=== PATIENT | female | born 1960 | race Caucasian/White ===

== ENCOUNTER 2019-02-05 21:29 | Inpatient (IN) | payer BC, SELFPAY ==
[2019-02-05 21:30] VITALS: BP 165/101; PULSE 73; RESP 18; TEMP 36.7; O2SAT 97; BMI 28.2
--- NOTE | 2019-02-05 21:38 | RAD_ITS ---
STUDY: X-RAY CHEST REASON FOR EXAM: Female, 59 years old. Chest pain TECHNIQUE: Frontal and lateral views COMPARISON: None. FINDINGS: The lungs are clear and expanded. There is no demonstrated pleural abnormality. Normal size heart. Normal mediastinum and ligia. Normal visualized pulmonary arteries. Normal visualized aortic arch and descending thoracic aorta. Normal visualized thoracic spine. Normal visualized ribs, clavicles, and shoulders. There is no demonstrated abnormality of the visualized soft tissue structures of the upper abdomen. RAD/Chest PA and Lateral IMPRESSION: Normal x-ray examination of the chest. Electronically Signed: Juan Sesay DO at 21:54 EDT Tel [phone], Service support ,
--- NOTE | 2019-02-05 21:40 | EKG12_ITS ---
Test Reason : CP Blood Pressure : / mmHG Vent. Rate : 074 BPM Atrial Rate : 074 BPM P-R Int : 202 ms QRS Dur : 092 ms QT Int : 398 ms P-R-T Axes : 074 030 092 degrees QTc Int : 441 ms Normal sinus rhythm Abnormal QRS-T angle, consider primary T wave abnormality Abnormal ECG Confirmed by CARLOS AMADOR ([id number]), editor magazine ALISSON HUFF ([id number]) on 02/11/2019 1:01:39 PM Referred By: Carlos Amador Confirmed By:CARLOS AMADOR
[2019-02-05 22:03] LABS: Absolute Neutrophil Count 3.4 X10^3/uL (2.0-7.7); Basophil# 0.01 X10^3/uL; Basophil% 0.2 % (0-1); Eosinophil# 0.17 X10^3/uL; Hematocrit 43.2 % (40-54); Hemoglobin 14.7 g/dl (13.0-16.5); Lymphocyte % 24.7 % (19-41); Mean Corpuscular Hgb 28.9 pg (27.0-32.0); Mean Platelet Vol. 9.4 fl (6.2-12.0); Monocyte# 0.63 X10^3/uL; Monocyte% 11.1 % (0-10); Neutrophil # 3.44 X10^3/uL (2.7-7.7); Neutrophil % 60.8 % (47-70); POSITIVE COUNT NO; POSITIVE DIFFERENTIAL NO; POSITIVE MORPHOLOGY NO; Platelet Count 215 K/mm3 (150-450); RBC Distribution Width CV 12.8 % (11.6-14.6); RBC Distribution Width SD 39.7 fl (35.1-43.9); Red Blood Count 5.08 M/mm3 (4.6-6.2); White Blood Count 5.7 K/mm3 (4.4-11.0)
[2019-02-05 22:10] VITALS: BP 135/81; PULSE 70; RESP 16; O2SAT 97
[2019-02-05 22:28] LABS: Anion Gap 6 (5-15); BUN 20 mg/dL (7-18); BUN/Creat Ratio 22.4 RATIO (10-20); Calcium,Total 9.7 mg/dL (8.5-10.1); Chloride 104 mmol/L (98-107); Creatinine, Serum 0.89 mg/dL (0.70-1.30); EST Glomerular Filtration Rate 92 mL/min (>60); Est Glom Filt Rate - Afr Amer 111 mL/min (>60); Estimated Creatinine Clearance 78.65 ml/min; Glucose 92 mg/dL (74-106); Potassium 3.7 mmol/L (3.5-5.1); Sodium Level 141 mmol/L (136-145)
[2019-02-05 23:23] VITALS: BP 161/98; PULSE 69; O2SAT 97
--- NOTE | 2019-02-05 23:43 | EKG12_ITS ---
Test Reason : REPEAT Blood Pressure : / mmHG Vent. Rate : 072 BPM Atrial Rate : 072 BPM P-R Int : 224 ms QRS Dur : 096 ms QT Int : 412 ms P-R-T Axes : 071 051 105 degrees QTc Int : 451 ms Sinus rhythm with 1st degree A-V block ST elevation consider inferior injury or acute infarct ACUTE FL / STEMI Consider right ventricular involvement in acute inferior infarct Abnormal ECG Confirmed by CARLOS AMADOR ([id number]), offline editor ALISSON HUFF ([id number]) on 02/11/2019 1:01:19 PM Referred By: Carlos Amador Confirmed By:CARLOS AMADOR
[2019-02-05] MEDS: Aspirin 81 MG TAB.CHEW 324 MG PO (23:56)
[2019-02-05 23:58] VITALS: BP 168/121; PULSE 83; RESP 14; O2SAT 99
[2019-02-06] VITALS (43 sets, daily range): BP systolic 82–168; BP diastolic 45–121; PULSE 63–87; RESP 10–22; TEMP 36.5–37.1; O2SAT 95–100; BMI 28.3; BMI 28.0
--- NOTE | 2019-02-06 00:07 | ED.VISSUMM ---
- ER Visit Summary Date of Service: 02/06/19 Chief Complaint: Chest pain History of Present Illness: The patient is a 59 M who presents with chest pain that began earlier today. Patient states her pain was intermittent and lasted approximately 5 minutes. Patient describes the pain as a pressure over the left side of her chest. Patient states the pain radiated to her left arm and jaw and then would resolve. Patient states the pain has been coming and going for the past few hours. Patient states nothing makes it better or worse. Patient admits to some nausea and some diaphoresis. Patient denies any of breath. Patient denies any palpitations. Patient denies any cough or fevers. Patient does have a history of hypertension and a family history of coronary artery disease with her father having myocardial infarctions at a young age. Physical Examination: Vital signs are stable with the exception of a mildly elevated blood pressure 165/101. Patient is in no acute distress. Patient is afebrile. Oral mucosa is pink and moist. Neck is supple. Trachea is midline. There is no JVD noted. Heart was regular rate and rhythm. Lungs are clear and equal bilaterally. Abdomen is soft. Bowel sounds are normal. There is no tenderness. Cranial nerves II through XII are intact. There are no focal motor or sensory deficits noted. Extremities are intact. There is no calf tenderness. Test Results: EKG showed normal sinus rhythm with a rate of 74. There is some mild T wave inversion in aVL but there are no other acute ST or T wave changes. CBC and basic metabolic profile were obtained and were normal. Troponin was normal. PA and lateral chest x-ray was normal. Emergency Department Course and Treatment: Patient was given aspirin. Patient had another episode of chest pain here in the emergency department. Repeat EKG was obtained at that time. EKG showed ST elevation in leads II, III, and aVF of 1 mm. There is more pronounced T wave inversion in aVL. There is also T wave inversion in lead I and V2 which is new compared to previous EKG. Patient met criteria for STEMI alert. Case was discussed with Dr. Amador. He recommended giving the patient Brilinta and heparin. He will begin to take the patient to the [facility]. Patient will be admitted to ICU to the hospitalist. Disposition: Admit to hospital Impression: 1. Acute STEMI This note was generated with YouMailation software. It may contain incorrect words, spelling, and punctuation that were not noted in review of the chart prior to signing ED Disposition - Plan for ED Patient: Disposition: Acute Care Hospital [facility] Diagnosis: STEMI (ST elevation myocardial infarction) Referrals: Care Physician,No Primary [Primary Care Provider] -
[2019-02-06] MEDS: Heparin Injection (Vial) 5,000 UNIT/ML VIAL 4000 UNIT IV (00:09)
[2019-02-06] MEDS: TICAGRELOR 90 MG TABLET 180 MG PO (00:09)
[2019-02-06] MEDS: LORazepam 2 MG/ML Syringe 0.5 MG IV (00:12)
--- NOTE | 2019-02-06 00:17 | PCM.HP.STD ---
Problem List (1) STEMI (ST elevation myocardial infarction) Status: Acute History of Present Illness Date of Admission: 02/06/19 Chief Complaint: CHEST PAIN The patient is a 59 year old F with a significant history of hypertension and fibromyalgia who presented to the emergency department because of chest pain that started about 5 hours prior of presentation. Associated her her symptoms is nausea without vomiting as well as diaphoresis. He describes her pain as not sharp but very painful. The pain was located on her left chest and it radiated to her left arm and to her neck. The pain was progressively worsening. While the patient was at the ED, a repeat EKG showed ST elevation in leads II, III and aVf. Her troponin was negative Past Medical History Medical History: Medical History (Last Updated 02/06/19 @ 02:35 by Carroll Garduno MD) HTN (hypertension) I10 Allergies No Known Allergies Allergy (Verified 02/05/19 21:32) Home Medications: Ambulatory Orders Medication Instructions Recorded Aliskiren Hemifumarate [Tekturna] 150 mg PO DAILY 02/05/19 Amlodipine [Norvasc] 10 mg PO DAILY 02/05/19 Aspirin [Aspirin, Baby] 81 mg PO DAILY@0800 02/05/19 Atenolol [Tenormin] 50 mg PO BID 02/05/19 Calcium Citrate 630 mg PO BID 02/05/19 Cholecalciferol (Vitamin D3) 2,000 unit PO DAILY 02/05/19 [Vitamin D3] Chondroitin Sulfate A Sodium 1,250 gm PO DAILY 02/05/19 [Chondroitin Sulfate] Clonidine HCl [Catapres] 0.1 mg PO BID 02/05/19 Cyanocobalamin (Vitamin B-12) 2,500 mcg PO DAILY 02/05/19 [B-12] Folic Acid 0.4 mg PO DAILY@0800 02/05/19 Glucosamine HCl 1,500 mg PO DAILY 02/05/19 Magnesium Oxide 500 mg PO DAILY 02/05/19 Olmesartan/Hydrochlorothiazide 1 tab PO DAILY 02/05/19 [Benicar Hct 40-12.5 MG Tab] buPROPion XL [Wellbutrin Xl] 300 mg PO DAILY 02/05/19 cycloBENZAPRine HCl [Flexeril] 10 mg PO QHS 02/05/19 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 In all he had about 16 at attacks. He had a CABG. Maternal History Items: Heart Disease - His mother had a CABG when she was in her 80s. Review of Systems Constitutional: Denies: Chills, Fever, Weight Change HEENT: Denies: Head Aches, Sinus Congestion, Sinus Drainage Cardiovascular: Reports: Chest Pressure. Denies: Palpitations Respiratory: Denies: Cough, Shortness of breath at rest, Sputum production Gastrointestinal: Denies: Abdominal Pain, Nausea, Vomiting Genitourinary: Denies: Dysuria Musculoskeletal: Denies: Joint Pain, Joint Tenderness Skin: Denies: Rash, Wounds Neurological: Denies: Numbness, Tingling, Focal weakness Psychiatric: Denies: Homicidal Ideations, Suicidal Ideations Hematologic/ Lymphatic: Denies: Easy Bruising, Easy Bleeding VTE Information - Inpt Only VTE Present on Admission: No VTE Mechan Device Prophylaxis: None VTE Pharm Prophylaxis ordered?: No Reason prophylaxis not ordered:: Treatment Not Indicated - Received therapeutic dose of heparin for STEMI Patient Problems: Active and Suspected Problems STEMI (ST elevation myocardial infarction) (Acute) - Physical Exam General: Alert, Oriented x3, Cooperative HEENT: Atraumatic, PERRLA, EOMI, Normocephalic Neck: Supple, No JVD, Negative Carotid Bruits Lungs: Clear to auscultation, Normal air movement Cardiovascular: Regular rate, No murmurs Abdomen: Bowel Sounds Present, Soft, Non Tender Extremities: No edema, Capillary Refill Less than 3 Seconds Skin: No rashes, No breakdown Musculoskeletal: No Tenderness to Palpation of Joints or Extremities Neurological: Cranial nerves II-XII grossly intact Psych/Mental Status: Anxious Vital Signs Temp Pulse Resp BP Pulse Ox 98.2 F 82 16 168/121 H 97 02/06/19 00:10 02/06/19 00:10 02/06/19 00:10 02/06/19 00:10 02/06/19 00:10 Oxygen Flow Rate (L/min) 2 Oxygen Delivery Method Nasal Cannula Weight: 79.379 kg Body Mass Index (BMI) 28.2 Laboratory Tests Past 24 Hrs 02/05/19 02/05/19 02/05/19 21:50 21:50 23:57 WBC 5.7 RBC 5.08 Hgb 14.7 Hct 43.2 MCV 85.0 MCH 28.9 MCHC 34.0 RDW 12.8 RDW Differential 39.7 Plt Count 215 MPV 9.4 Immature Gran % (Auto) 0.200 Neut % (Auto) 60.8 Lymph % (Auto) 24.7 [place] % (Auto) 11.1 H Eos % (Auto) 3.0 Baso % (Auto) 0.2 Absolute Neuts (auto) 3.4 Absolute Lymphs (auto) 1.40 Total Counted Not Reportable Sodium 141 Potassium 3.7 Chloride 104 Carbon Dioxide 31.0 Anion Gap 6 BUN 20 H Creatinine 0.89 Estim Creat Clear Calc 78.65 Est GFR (MDRD) Af Amer 111 Est GFR (MDRD) Non-Af 92 BUN/Creatinine Ratio 22.4 H Glucose 92 Calcium 9.7 Troponin I < 0.015 Pending Assessment/Plan All Active Problems STEMI (ST elevation myocardial infarction) (Acute) The patient is a 59 year old F with a significant history of hypertension and fibromyalgia who presented to the emergency department because of chest pain and developed STEMI while at the ED. STEMI EKG showed ST elevation in leads II, III and aVF with reciprocal T wave inversion in leads I, aVL and V2. STEMI alert was called and patient was sent to the STEMI lab. CXR independently reviewed confirms no acute cardiopulmonary process. Patient received ASA 324 mg. Patient received loading dose of Brilinta and therapeutic dose of heparin at the emergency department. Reports intolerance to Statin We will check lipid panel. HTN On multiple blood pressure medicine Fibromyalgia On Flexeril Osteoarthritis On Glucosamine and Chondroitin. Hold while inpatient. DVT Prophylaxis Received therapeutic dose of Heparin for STEMI Code Visit Inpatient E&M: 11151 Init Hosp L3
[2019-02-06 00:36] LABS: Prothrombin Time (Protime)PT. 13.1 SECONDS (11.7-14.9)
[2019-02-06 00:37] LABS: Partial Thromboplast Time 35.9 Seconds (24.1-36.2)
--- NOTE | 2019-02-06 01:30 | CL.I_ITS ---
Patient Name: RACHAEL GARCIA Study Date: 02/06/2019 Performing: Enzo Amador MD Ht: 66 inches 168 cm : 1960 Wt: 174.4 lbs 79 kg Age: 59 Gender: female BSA: 1.89 PROCEDURE(S) PERFORMED NE06-NMR/COR/LV RF35-QCY, HUGH AND/OR PTCA, ARTERY OR GRAFT, SINGLE VESSEL CLINICAL PROFILE AND CO-MORBIDITIES Patient presents with STEMI for emergent cardiac cath. Indications: ACS <= 24 hrs, Suspected CAD Heart Failure: None Stress/Imaging Stress/Image Study Performed: No Angina Classification Anginal Classification w/in 2 Weeks: CCS IV CAD Presentations: STEMI. Symptom onset Date/Time: 02/05/2019 Time Not Available Comorbidities/Risk Factors: Hypertension CONCLUSIONS Single vessel CAD of the RCA Non obstructive coronary arteries Successful PTCA/HUGH mid RCA with a 3.0 x 38 Promus Synergy, 95%-->0%, no dissection. RECOMMENDATIONS Referred for immediate PCI Highly recommend quitting all tobacco products Follow up with primary pharmaceutical compounding supervisor Risk factor modification ASA Indefinitley Plavix for at least 12 months Routine post interventional care Refer for Outpatient Cardiac Rehab Manual sheath removal per protocol Follow up with Dr. Amador Medical management of LAD and LCX. Manual sheath removal; 6Fr sheath sized up to 7Fr d/t small hematoma. DESCRIPTION OF PROCEDURE The patient arrived to the procedure lab. The risks and benefits of the procedure as well as a full d escription of our services here and lack of surgical backup were fully explained to the patient and/o r their significant other prior to the catheterization. The Timeout was completed, verifying the zohra ect patient and procedure. The patient's procedural site was prepped and draped in the usual fashion. Local anesthetic was given subcutaneously to right groin region with Lidocaine 2%. Using a modified Seldinger technique, arterial access was obtained via the right femoral artery, a 6Fr sheath was inse rted.. Left Coronary Artery selective angiography was performed in multiple views using a 4 Fr. JL5 catheter. Right Coronary Artery selective angiography was then performed in multiple views using a 6 Fr. HS1. Left Ventriculography was performed in DUNCAN projection using a 4 Fr. Pigtail catheter. LV to AO pullback pressures were then recorded HS1 Guide catheter was inserted and engaged into the RCA. Runthrough Guide catheter was inserted and engaged into the RCA. Emerge 2.0 x 12 Balloon catheter was inserted. Balloon catheter was advance d across lesion in the right coronary, mid. PTCA balloon inflated at 8 atms for 10 secs. Angiogram pe rformed post balloon dilatation. PTCA balloon inflated at 8 atms for 13 secs. PTCA balloon inflated a t 8 atms for 10 secs. Angiogram performed post balloon dilatation. Synergy 3.0 x 38 Drug Eluting sten t was advanced across the lesion in the right coronary, mid. Angiogram performed post stent deploymen t. Angiogram performed post stent deployment. The arterial sheath was exchanged to 7fr sheath upsiz e due to bleeding around the insertion site. The arterial sheath was sutured in place and capped CORONARY ANGIOGRAPHY DOMINANCE: Right Dominant LEFT HEART ASSESSMENT Left Ventricular Ejection Fraction: by LV Gram 65 % Normal Left Ventricular systolic function LVEDP: 19 mmHg Elevated Left Ventricular End Diastolic Pressure Normal LV wall motion LEFT MAIN: Angiographically normal LEFT ANTERIOR DESCENDING ARTERY: Mild luminal irregularities less than 30% CIRCUMFLEX ARTERY: Mild luminal irregularities less than 30% RIGHT CORONARY ARTERY: MID RCA: 95 % Stenosis INTERVENTION INFORMATION LESION SITE: RCA (Mid) Lesion Complexity: High/C, lesion at bifurcation: No, thrombus present: No, lesion length: 38 mm, cul prit lesion: Yes Pre Stenosis: 95 % Pre intervention MATT flow: 2 PROCEDURE: Drug Eluting Stent with pre dilatation. Post Stenosis: 0 % Post intervention MATT flow: 3 Lesion Devices: Embly 6 Fr HS1 100cm Guide Catheter Manuel Sci EMERGE MR 2.00x12 BALLOON Manuel Sci Synergy MR HUGH 3.00x38 COMPLICATIONS No Complications PROCEDURE MEDICATIONS Oxygen: 2 L/min via nasal cannula Brilinta , and 4 baby aspirin in the ER ^FreeText^ @ 02/06/2019 00:37:39 Heparin , 180mg Brilinta, and 4 baby aspirin in the ER ^FreeText^ 02/06/2019 00:37:39 Heparin 6000 unit(s) IV 02/06/2019 00:58:54 Nitro 200 mcg IC 02/06/2019 00:59:56 Nitro 200 mcg IC 02/06/2019 00:59:56 IV Bolus: .9 NaCl 700ml total 02/06/2019 00:40:30 SUMMARY OF HEMODYNAMIC DATA Time AIR REST ECG 00:35:17 AO 140/104 (122) SA 00:54:49 LV 150/-13, 16 01:10:52 LV 150/-13, 16 01:10:58 LVp 148/-14, 14 01:11:04 AOp 152/84 (114) 01:11:09 Signed By Enzo Amador MD On 02/06/2019 01:29:37 Enzo Amador MD
--- NOTE | 2019-02-06 01:41 | EKG12_ITS ---
Test Reason : AM EKG Blood Pressure : / mmHG Vent. Rate : 067 BPM Atrial Rate : 067 BPM P-R Int : 214 ms QRS Dur : 098 ms QT Int : 450 ms P-R-T Axes : 053 019 -04 degrees QTc Int : 475 ms Sinus rhythm with 1st degree A-V block Nonspecific T-Wave Abnormality Confirmed by CARRIE CASTILLO, ANDIE ([id number]), editor news ALISSON HUFF ([id number]) on 02/11/2019 1:56:49 PM Referred By: Enzo Amador Confirmed By:ANDIE BUTLER MD
[2019-02-06 03:16] LABS: Hematocrit 41.6 % (37-47); Hemoglobin 14.2 g/dl (12.0-15.0); Mean Corp Hgb Conc 34.1 g/gl (32-36); Mean Corpuscular Hgb 28.4 pg (27.0-32.0); Mean Corpuscular Volume 83.2 fL (81-99); Mean Platelet Vol. 9.2 fl (6.2-12.0); Platelet Count 236 K/mm3 (150-450); RBC Distribution Width SD 38.8 fl (35.1-43.9); White Blood Count 7.5 K/mm3 (4.4-11.0)
[2019-02-06 03:16] LABS: ACT Activated Clotting Time 197 sec (74-137)
[2019-02-06 03:20] LABS: Scan Indicated on CBC? Y/N NO
[2019-02-06 03:31] LABS: ACT Activated Clotting Time 285 sec (74-137)
[2019-02-06 03:31] LABS: ACT Activated Clotting Time 175 sec (74-137)
[2019-02-06 03:35] LABS: Anion Gap 10 (5-15); BUN 16 mg/dL (7-18); BUN/Creat Ratio 28.9 RATIO (10-20); Calcium,Total 8.6 mg/dL (8.5-10.1); Chloride 107 mmol/L (98-107); Cholesterol 183 mg/dL (200); Creatinine, Serum 0.55 mg/dL (0.55-1.02); EST Glomerular Filtration Rate 118 mL/min (>60); Est Glom Filt Rate - Afr Amer 143 mL/min (>60); Estimated Creatinine Clearance 100.56 ml/min; Glucose 119 mg/dL (74-106); High Density Lipoprotein 52 mg/dL; Potassium 3.2 mmol/L (3.5-5.1); Sodium Level 143 mmol/L (136-145); Triglycerides 92 mg/dL; Very Low Density Lipoprotein 18 mg/dL (5-40)
[2019-02-06] MEDS: Acetaminophen 325 MG Tablet 650 MG PO ×2 (03:52→13:51)
[2019-02-06] MEDS: 0.9% Normal Saline 1,000 ML 150 ML IV (03:53)
[2019-02-06] MEDS: diazePAM 5 MG Tablet PO (05:58)
--- NOTE | 2019-02-06 06:56 | ECHOCS_ITS ---
Procedure This was a 2D Doppler, Color Flow transthoracic echocardiogram. The study was technically difficult. Due to body habitus and unable to reposition patient due to recent heart catherization. Contrast injection was performed. Exam performed portable in ICU/CCU. Left Ventricle Normal size and thickness. The estimated ejection fraction is 55 %. Stage 1 diastolic dysfunction. Infero-Basal: Mildly hypokinetic. Right Ventricle Normal size and thickness. Normal systolic function. Atria Normal left atrium. Normal right atrium. Normal atrial septum. Mitral Valve The mitral valve is structurally normal. No prolapse or stenosis seen. Mild mitral annular calcification extending into the posterior leaflet. Tricuspid Valve Normal tricuspid valve. Trivial tricuspid valve insufficiency. Right ventricular systolic pressure estimated to be 23 mmHg. Aortic Valve Normal aortic valve. Trisinus/trileaflet aortic valve. Pulmonic Valve Normal pulmonic valve. Great Vessels Normal aortic root. Normal arch. Normal inferior vena cava. Inferior vena cava collapse with sniff. Pericardium/Pleural No pericardial effusion. Medication Diluted definity 2.0ml given slow IV push to enhance endocardial definition. MMode/2D Measurements & Calculations LVIDd: 4.4 cm IVSd: 1.2 cm Ao root diam: 3.3 cm LVIDs: 3.2 cm LVPWd: 1.3 cm RVDd: 3.0 cm FS: 27.9 % Time Measurements MV dec time: 0.20 sec Doppler Measurements & Calculations MV E max abel: 71.9 cm/sec Lat Peak E' Abel: 6.7 cm/sec Med Peak E' Abel: 4.1 cm/sec MV A max abel: 67.8 cm/sec E/E' lat: 10.7 E/E' med: 17.4 MV E/A: 1.1 Ao V2 max: 96.8 cm/sec LV V1 max: 71.1 cm/sec PA V2 max: 63.5 cm/sec Ao max P.8 mmHg LV V1 max P.0 mmHg TR max abel: 208.8 cm/sec TR max P.5 mmHg Interpretation Summary The estimated ejection fraction is 55 %. Stage 1 diastolic dysfunction. Infero-Basal: Mildly hypokinetic Trivial tricuspid valve insufficiency. Right ventricular systolic pressure estimated to be 23 mmHg. The study was technically difficult. There is no comparison study available. Contrast injection was performed. Ordering Physician: Enzo Amador Referring Physician: Enzo Amador
[2019-02-06] MEDS: hydroCHLOROthiazide 12.5mg 12.5 MG PO (07:26)
--- NOTE | 2019-02-06 07:28 | PCM.PN.CARD ---
Subjectve: Patient doing very well this morning. No chest pain, she is still in place. Right groin is clean/dry/intact, soft. Telemetry showed normal sinus rhythm with a single 5 beat run of nonsustained ventricular tachycardia which was self terminating. EKG demonstrates normal sinus rhythm with nonspecific ST and T wave changes. Hemoglobin and creatinine within nominal limits. Objective: Vital Signs Temp Pulse Resp BP Pulse Ox 98.3 F 75 15 158/74 H 100 02/06/19 04:00 02/06/19 06:59 02/06/19 06:59 02/06/19 06:59 02/06/19 06:59 Oxygen Flow Rate (L/min) 2 Oxygen Delivery Method Nasal Cannula Weight: 175 lb 4.28 oz Body Mass Index (BMI) 28.3 Intake and Output for Last 24 Hours 02/04/19 02/05/19 02/06/19 23:59 23:59 23:59 Intake Total 665 / 665 Output Total 900 / 900 Balance -235 / -235 General: Awake, Alert, Oriented x 3 HEENT: PERRL, EOMI, Sclera Non Icteric Neck: Supple, Good ROM, No Lymph Node Enlargement Lungs: Clear to auscultation Cardiovascular: Regular Rhythm, Normal S1, Normal S2, No Murmurs, No Rubs, No Gallops Vascular: No Carotid Bruits, Normal Femoral Pulses, Normal Radial Pulses, Normal Dorsalis Pedal Pulse, Normal Posterior Tibial Pulses Abdomen: Bowel Sounds Present, Soft, Non Tender, No HSM, No Organomegaly Extremities: No Cyanosis, No Clubbing, No edema Neurological: No Focal Motor or Sensory Deficit 02/05/19 21:50: WBC 5.7, RBC 5.08, Hgb 14.7, Hct 43.2, MCV 85.0, MCH 28.9, MCHC 34.0, RDW 12.8, RDW Differential 39.7, Plt Count 215, MPV 9.4, Immature Gran % (Auto) 0.200, Neut % (Auto) 60.8, Lymph % (Auto) 24.7, [place] % (Auto) 11.1 H, Eos % (Auto) 3.0, Baso % (Auto) 0.2, Absolute Neuts (auto) 3.4, Total Counted Not Reportable 02/05/19 21:50: Sodium 141, Potassium 3.7, Chloride 104, Carbon Dioxide 31.0, Anion Gap 6, BUN 20 H, Creatinine 0.89, Est GFR (MDRD) Af Amer 111, Est GFR (MDRD) Non-Af 92, BUN/Creatinine Ratio 22.4 H, Glucose 92, Calcium 9.7, Troponin I < 0.015 02/05/19 21:50: PT 13.1, INR 1.0, APTT 35.9 02/05/19 23:57: Troponin I 0.088 H 02/06/19 03:05: WBC 7.5, RBC 5.00, Hgb 14.2, Hct 41.6, MCV 83.2, MCH 28.4, MCHC 34.1, RDW 13.0, RDW Differential 38.8, Plt Count 236, MPV 9.2 02/06/19 03:05: Sodium 143, Potassium 3.2 L, Chloride 107, Carbon Dioxide 26.0, Anion Gap 10, BUN 16, Creatinine 0.55, Est GFR (MDRD) Af Amer 143, Est GFR (MDRD) Non-Af 118, BUN/Creatinine Ratio 28.9 H, Glucose 119 H, Calcium 8.6, Triglycerides 92, Cholesterol 183, LDL Cholesterol 113, VLDL Cholesterol 18, HDL Cholesterol 52 02/06/19 03:05: Troponin I 1.400 H* Rhythm: EKG: Normal sinus rhythm with nonspecific ST and T wave changes. ECHO: Pending Stress Test: Cardiac Cath: PCI: CT Surgery: Holter monitor: EPS: PPM: CXR: Chest CT Scan: Medical Necessity - Tobacco Use Smoking Status: Never smoker Tobacco Use: Non-smoker Assessment/Plan 1. Coronary artery disease: Patient presented last evening with unstable angina, chest pain, but originally her EKG showed subtle nonspecific ST segment changes. Patient was treated medically and her pain abated, however then returned later on that evening. Repeat EKG demonstrated acute inferior lateral wall myocardial infarction. Patient was emergently brought to the [facility] where she underwent emergent left her catheterization which showed nonobstructive disease of her LAD and left circumflex, as well as 2 tandem lesions in her mid RCA of approximately 85 and 95%. Patient underwent successful emergent heparin and Brilinta assisted angioplasty and stenting receiving a 3.0X 38 Promus drug-eluting stent. This morning she is doing fairly well. She denies any chest pain. Her vitals are stable. At this point we will initiate her antihypertensive therapy this morning, followed by obtaining an ACT. Once her ACT is less than 170 we will remove her right femoral artery 7 Marshallese sheath. She will remain in the ICU for a period of 24 hours time, and possibly go home tomorrow depending upon her condition and level of her enzymes. She will undergo a 2D echo Doppler this morning to document her baseline LV function and repeat in 3 to 4 months after completing cardiac rehab. No additional evaluation of her LAD and circumflex are required at this time. 2. Hyperlipidemia: Her LDL is 115 and HDL is 52. Continue statin based on lipid therapy. Repeat lipid profile in 6 weeks time. 3. Thank you very much for the opportunity to participate in the cardiac care of your patient. Code Visit Inpatient E&M: 74793 Subs Hosp L2
[2019-02-06] MEDS: Losartan Potassium 100 MG Tablet PO (07:46)
[2019-02-06] MEDS: cloNIDine HCl 0.1 MG Tablet PO ×2 (07:46→21:15)
--- NOTE | 2019-02-06 07:55 | PN_ITS ---
Patient Problems: Active and Suspected Problems (Last Updated 02/06/19 @ 02:35 by Carroll Garduno MD) STEMI (ST elevation myocardial infarction) (Acute) Subjective: Patient is a 59-year-old lady admitted with acute ST segment elevation [place] underwent emergency left heart catheterization with PTCA/HUGH of a 90% RCA lesion Objective: GENERAL: cooperative HEENT: Atraumatic; moist oral mucosa EYES; Anicteric, Normal Conjunctiva NECK; supple, normal thyroid, no distended JVD. RESPIRATORY: Diminished to auscultation bilaterally, CARDIOVASCULAR: Regular S1 S2, no audible murmurs GI: soft, non-tender, normoactive bowel sounds, : No Renal angle tenderness; EXTREMITIES: No edema, no clubbing, no cyanosis. MUSCULOSKELETAL: No Joint Tenderness; no muscle waisting NEURO: Awake; no lateralizing signs. SKIN: No Rash PSYCH; Normal affect Vitals/I&O's: Vital Signs Temp Pulse Resp BP Pulse Ox 98.3 F 75 15 158/74 H 100 02/06/19 04:00 02/06/19 06:59 02/06/19 06:59 02/06/19 06:59 02/06/19 06:59 Oxygen Flow Rate (L/min) 2 Oxygen Delivery Method Nasal Cannula Weight: 79.5 kg Body Mass Index (BMI) 28.3 Intake and Output for Last 24 Hours 02/04/19 02/05/19 02/06/19 23:59 23:59 23:59 Intake Total 665 / 665 Output Total 900 / 900 Balance -235 / -235 Laboratory Results 02/05/19 21:50: WBC 5.7, RBC 5.08, Hgb 14.7, Hct 43.2, MCV 85.0, MCH 28.9, MCHC 34.0, RDW 12.8, RDW Differential 39.7, Plt Count 215, MPV 9.4, Immature Gran % (Auto) 0.200, Neut % (Auto) 60.8, Lymph % (Auto) 24.7, Davis % (Auto) 11.1 H, Eos % (Auto) 3.0, Baso % (Auto) 0.2, Absolute Neuts (auto) 3.4, Absolute Lymphs (auto) 1.40, Total Counted Not Reportable 02/05/19 21:50: Sodium 141, Potassium 3.7, Chloride 104, Carbon Dioxide 31.0, Anion Gap 6, BUN 20 H, Creatinine 0.89, Estim Creat Clear Calc 78.65, Est GFR (MDRD) Af Amer 111, Est GFR (MDRD) Non-Af 92, BUN/Creatinine Ratio 22.4 H, Glucose 92, Calcium 9.7, Troponin I < 0.015 02/05/19 21:50: PT 13.1, INR 1.0, APTT 35.9 02/05/19 23:57: Troponin I 0.088 H 02/06/19 00:55: Activated Clotting Time 175 H 02/06/19 01:12: Activated Clotting Time 285 H 02/06/19 03:05: WBC 7.5, RBC 5.00, Hgb 14.2, Hct 41.6, MCV 83.2, MCH 28.4, MCHC 34.1, RDW 13.0, RDW Differential 38.8, Plt Count 236, MPV 9.2 02/06/19 03:05: Sodium 143, Potassium 3.2 L, Chloride 107, Carbon Dioxide 26.0, Anion Gap 10, BUN 16, Creatinine 0.55, Estim Creat Clear Calc 100.56, Est GFR (MDRD) Af Amer 143, Est GFR (MDRD) Non-Af 118, BUN/Creatinine Ratio 28.9 H, Glucose 119 H, Calcium 8.6, Triglycerides 92, Cholesterol 183, LDL Cholesterol 113, VLDL Cholesterol 18, HDL Cholesterol 52 02/06/19 03:05: Troponin I 1.400 H* 02/06/19 03:06: Activated Clotting Time 197 H Current Medications Acetaminophen (Tylenol) 650 mg PO Q6H PRN PRN PRN Reason: Mild Pain (0-2/10) Last Admin: 02/06/19 03:52 Dose: 650 mg Documented by: Aliskiren (Tekturna) 150 mg PO DAILY [facility] Amlodipine Besylate (Norvasc) 10 mg PO DAILY [facility] Aspirin (Ecotrin) 81 mg PO DAILY@0800 [facility] Atenolol (Tenormin (Beta Malcolm)) 50 mg PO BID [facility] Atorvastatin Calcium (Lipitor) 80 mg PO QHS [facility] Atropine Sulfate () 0.5 mg IV UD PRN PRN Reason: HR <50 bpm Bupropion HCl (Wellbutrin Xl) 300 mg PO DAILY [facility] Calcium Carbonate (Tums) 500 mg PO BID [facility] Cholecalciferol (Vitamin D) 2,000 unit PO DAILY [facility] Clonidine (Catapres) 0.1 mg PO BID [facility] Last Admin: 02/06/19 07:46 Dose: 0.1 mg Documented by: Cyanocobalamin (Vitamin B12) 2,500 mcg PO DAILY [facility] Cyclobenzaprine HCl (Flexeril) 10 mg PO QHS [facility] Dextrose (D50w Syringe) 0 gm IV X1 PRN; Protocol PRN Reason: Hypoglycemia Diazepam (Valium) 5 mg PO Q6H PRN PRN PRN Reason: BACK SPASMS/ANXIETY Last Admin: 02/06/19 05:58 Dose: 5 mg Documented by: Folic Acid (Folic Acid) 0.5 mg PO DAILY@0800 [facility] Glucagon () 1 mg IM .X1 PRN PRN Reason: Hypoglycemia Heparin Sodium (Beef Lung) (Heparin 500 Unit/5 Ml (100/Ml)) 500 unit IV UD PRN PRN Reason: HEPARIN FLUSH Hydrochlorothiazide () 12.5 mg PO DAILY [facility] Last Admin: 02/06/19 07:26 Dose: 12.5 mg Documented by: Sodium Chloride () 1,000 mls @ 150 mls/hr IV .[id number] [facility] Stop: 02/06/19 08:20 Last Admin: 02/06/19 03:53 Dose: 150 mls/hr Documented by: Sodium Chloride () 250 mls @ 15 mls/hr IV .[id number] PRN PRN Reason: SALINE FLUSH Labetalol HCl (Trandate) 5 mg IV X1 PRN PRN Reason: SBP > 160 when pulling sheath Losartan Potassium (Cozaar) 100 mg PO DAILY [facility] Last Admin: 02/06/19 07:46 Dose: 100 mg Documented by: Magnesium Oxide (Mag-Ox 400) 400 mg PO DAILY [facility] Metoclopramide HCl (Reglan) 5 mg IV Q6H PRN PRN PRN Reason: NAUSEA/VOMITING Metoprolol Tartrate (Lopressor (Beta Malcolm)) 12.5 mg PO BID [facility] Morphine Sulfate () 2 mg IV Q4H PRN PRN PRN Reason: Mild back pain (0-2/10) Nitroglycerin (Nitrostat) 0.4 mg SUBLINGUAL Q5M PRN PRN Reason: CARDIAC/CHEST PAIN Sodium Chloride () 500 ml IV BOLUS PRN PRN Reason: VASO-VAGAL PROTOCOL Sodium Chloride () 10 - 40 ml IV UD PRN PRN Reason: SALINE FLUSH Ticagrelor (Brilinta) 90 mg PO BID [facility] Medical Necessity - Tobacco Use Smoking Status: Never smoker Tobacco Use: Non-smoker Assessment/Plan All Active Problems (Last Updated 02/06/19 @ 02:35 by Carroll Garduno MD) STEMI (ST elevation myocardial infarction) (Acute) Patient is a 59-year-old lady admitted with acute ST segment elevation [place] underwent emergency left heart catheterization with PTCA/HUGH of a 90% RCA lesion 1. Acute ST segment elevation [place] underwent emergency left heart catheterization with PTCA/HUGH of a 90% RCA lesion by Dr. Amador. Patient is currently on recommended medications including beta-blockers statin therapy and dual antiplatelet therapy 2. Hypertension-blood pressure controlled, home medications continued with dose adjustment as needed 3. Fibromyalgia: Pain under control 4. Dyslipidemia started on statin therapy 5. DVT prophylaxis; SC Lovenox hypertension and fibromyalgia Active Medications Acetaminophen (Tylenol) 650 mg PO Q6H PRN PRN PRN Reason: Mild Pain (0-2/10) Last Admin: 02/06/19 03:52 Dose: 650 mg Documented by: Aliskiren (Tekturna) 150 mg PO DAILY [facility] Amlodipine Besylate (Norvasc) 10 mg PO DAILY [facility] Aspirin (Ecotrin) 81 mg PO DAILY@0800 [facility] Atenolol (Tenormin (Beta Malcolm)) 50 mg PO BID [facility] Atorvastatin Calcium (Lipitor) 80 mg PO QHS [facility] Atropine Sulfate () 0.5 mg IV UD PRN PRN Reason: HR <50 bpm Bupropion HCl (Wellbutrin Xl) 300 mg PO DAILY [facility] Calcium Carbonate (Tums) 500 mg PO BID [facility] Cholecalciferol (Vitamin D) 2,000 unit PO DAILY [facility] Clonidine (Catapres) 0.1 mg PO BID [facility] Last Admin: 02/06/19 07:46 Dose: 0.1 mg Documented by: Cyanocobalamin (Vitamin B12) 2,500 mcg PO DAILY [facility] Cyclobenzaprine HCl (Flexeril) 10 mg PO QHS [facility] Dextrose (D50w Syringe) 0 gm IV X1 PRN; Protocol PRN Reason: Hypoglycemia Diazepam (Valium) 5 mg PO Q6H PRN PRN PRN Reason: BACK SPASMS/ANXIETY Last Admin: 02/06/19 05:58 Dose: 5 mg Documented by: Folic Acid (Folic Acid) 0.5 mg PO DAILY@0800 [facility] Glucagon () 1 mg IM .X1 PRN PRN Reason: Hypoglycemia Heparin Sodium (Beef Lung) (Heparin 500 Unit/5 Ml (100/Ml)) 500 unit IV UD PRN PRN Reason: HEPARIN FLUSH Hydrochlorothiazide () 12.5 mg PO DAILY [facility] Last Admin: 02/06/19 07:26 Dose: 12.5 mg Documented by: Sodium Chloride () 250 mls @ 15 mls/hr IV .[id number] PRN PRN Reason: SALINE FLUSH Labetalol HCl (Trandate) 5 mg IV X1 PRN PRN Reason: SBP > 160 when pulling sheath Losartan Potassium (Cozaar) 100 mg PO DAILY [facility] Last Admin: 02/06/19 07:46 Dose: 100 mg Documented by: Magnesium Oxide (Mag-Ox 400) 400 mg PO DAILY [facility] Metoclopramide HCl (Reglan) 5 mg IV Q6H PRN PRN PRN Reason: NAUSEA/VOMITING Metoprolol Tartrate (Lopressor (Beta Malcolm)) 12.5 mg PO BID [facility] Morphine Sulfate () 2 mg IV Q4H PRN PRN PRN Reason: Mild back pain (0-2/10) Nitroglycerin (Nitrostat) 0.4 mg SUBLINGUAL Q5M PRN PRN Reason: CARDIAC/CHEST PAIN Sodium Chloride () 500 ml IV BOLUS PRN PRN Reason: VASO-VAGAL PROTOCOL Sodium Chloride () 10 - 40 ml IV UD PRN PRN Reason: SALINE FLUSH Ticagrelor (Brilinta) 90 mg PO BID [facility] Code Visit Inpatient E&M: 67527 Subs Hosp L3
--- NOTE | 2019-02-06 08:00 | NURSING ---
on hold, sheath remains present Rt groin
[2019-02-06 08:31] LABS: ACT Activated Clotting Time 125 sec (74-137)
--- NOTE | 2019-02-06 09:59 | CRPHASE1 ---
Patient Communication PHII Cardiac Rehab Discussed with Patient:: Yes Guide to Cardiac Rehab Given to Patient:: Yes Cardiac Rehab Facility Choice List Given to Patient:: Yes - [facility] Choice Program [facility] CR PHII:: Communication Given to CR, Refer to [facility] Portable Sawmill Operator:: Enzo Amador Sessions:: 36 sessions - 3 days/wk, 12 weeks Risk Factors/Lifestyle Smoking Status: Never smoker Hx Hypertension: Yes - ON MEDS Hx Diabetes Mellitus Type 2: No Height: 1.68 m Weight:: 79.3 kg BMI: 28.0 Post-Menopausal: Yes ETOH: No Caffeine: No Substance Abuse: No Family History: Hypertension Past Cardiac Illness: Previous PCI w/Stent Laboratory Values: Cardiac Rehab Phase I Labs Triglycerides 92 mg/dL (-199) 02/06/19 03:05 Cholesterol 183 mg/dL (200) 02/06/19 03:05 113 mg/dL (0-130) 02/06/19 03:05 52 mg/dL (40-) 02/06/19 03:05 Phase I Education Given On:: [place], Nutrition Issues Affecting Care:: None Knowledge of Condition:: Yes Hospital Course Pain Description: Sharp, Tightness Pain Intensity: 9 Cardiac Cath Date:: 02/06/19 Medical/Surgical History VA:: Yes Angina:: Yes Hypertension:: Yes - ON MEDS Discharge/Home/Social Eval Discharge Disposition: Home Marital Status: - Cardiac Rehabilitation Info Cardiac Rehabilitation Program Information: Cardiac Rehabilitation is important for patients like you who are recovering from a heart problem. Cardiac rehabilitation programs are recognized as integral to the continued care of the patient with coronary heart disease. The cardiac rehabilitation program is designed to optimize a patient's physical, psychological, and social functioning. Health career specialist work in cardiac rehabilitation programs and assist you with getting the treatments you need to get stronger and healthier - like exercise, healthy eating habits, and medications. Cardiac rehabilitation has been show to help people with heart problems live longer and have better life enjoyment than people who do not go to cardiac rehabilitation. Please contact the Cardiac Rehabilitation Program at [facility] at in two weeks if you have not heard from them.
--- NOTE | 2019-02-06 10:03 | CRPH1.INSTRU ---
General Education CAD and cardiac anatomy and function:: Patient communicates acknowledgment Explanation of diagnoses and procedures:: Patient communicates acknowledgment Sign/Symptoms of AL:: Patient communicates acknowledgment Antiplatelet therapy: Not instructed Proper use of NTG-SL: Not instructed Emergency procedures and activation of EMS: Patient communicates acknowledgment Compliance of all prescribed medications: Not instructed Smoking Patient Nicotine/Smoking Risk Factors Are:: Never smoked Dyslipidemia Recommendations Include:: Lipid profile not available Overweight/Obesity Patient Overweight/Obesity Risk Factors Are:: Overweight = 26-29 Overweight/Obesity:: Patient communicates acknowledgment Hypertension Recommendations Include:: Maintain BP <130/85 Hypertension:: Patient communicates acknowledgment - on meds Heart Disease Patient Heart Disease Risk Factors Are:: Family history of heart disease < 65 years old Heart Disease Response Code:: Patient communicates acknowledgment Diabetes Patient Diabetes Risk Factors Are:: No documented hx of diabetes Metabolic Syndrome Patient Metabolic Syndrome Risk Factors Are [3 of 5]:: Hypertension Metabolic Syndrome Response Code:: Patient communicates acknowledgment Sedentary Patient Sedentary Risk Factors Are:: Lack of regular exercise Recommendations Include:: Monitored Outpatient Cardiac Rehab Sedentary Response Code:: Patient communicates acknowledgment Stress Patient Stress Risk Factors Are:: Patient denies stress as a risk factor - just moved to town job transfer
--- NOTE | 2019-02-06 10:54 | PN_ITS ---
Progress Note Patient is scheduled for a post hospital follow-up with Jose Carlos José Nurse Practitioner, on 03/07/2019 at 1:30 PM at the [facility] Office.
[2019-02-06] MEDS: Folic Acid 1 MG Tablet 0.5 MG PO (13:43)
[2019-02-06] MEDS: Aspirin E.C. 81 MG Tablet PO (13:43)
[2019-02-06] MEDS: TICAGRELOR 90 MG TABLET PO ×2 (13:44→21:15)
[2019-02-06] MEDS: Metoprolol Tartrate 25 MG Tablet 12.5 MG PO ×2 (13:45→21:14)
[2019-02-06] MEDS: Magnesium Oxide 400 MG Tablet PO (13:46)
[2019-02-06] MEDS: amLODIPine 10 MG Tablet PO (13:46)
[2019-02-06] MEDS: Calcium Carbonate 500 MG Tablet PO ×2 (13:47→21:16)
[2019-02-06] MEDS: Atenolol 50 MG Tablet PO ×2 (13:47→21:15)
[2019-02-06] MEDS: Cyanocobalamin 500 MCG Tablet 2500 MCG PO (13:47)
[2019-02-06] MEDS: ALISKIREN HEMIFUMARATE 150 MG PO (13:47)
[2019-02-06] MEDS: buPROPion (XL) 300 MG TABLET.XL PO (13:48)
--- NOTE | 2019-02-06 15:09 | CASEMGMT ---
SUZI CM Assessment DX: STEMI, Heart Cath PTCA/HUGH RCA PCP: Dr. Morales, [place], [place] . Pt moved to [facility] recently- List of [facility] physicians given to patient for [facility]. Specialist: Dr. Amador, provider relations advocate Pharmacy: [facility]. Entered in computer. [employer] savings card given to patient and explained. Living arrangements: Pt lives independently with her . No care needs identified. DME: none DC Plan: Home on discharge. Jr ALEGRE RN ACM
[2019-02-06] MEDS: Atorvastatin Calcium 80 MG Tablet PO (21:14)
[2019-02-06] MEDS: cycloBENZAPRine HCl 10 MG Tablet PO (21:16)
[2019-02-07] VITALS (22 sets, daily range): BP systolic 102–143; BP diastolic 53–81; PULSE 61–87; RESP 14–20; TEMP 36.6–36.9; O2SAT 96–100
[2019-02-07 06:26] LABS: Anion Gap 9 (5-15); BUN 23 mg/dL (7-18); Calcium,Total 8.1 mg/dL (8.5-10.1); Chloride 113 mmol/L (98-107); Creatinine, Serum 0.56 mg/dL (0.55-1.02); EST Glomerular Filtration Rate 117 mL/min (>60); Est Glom Filt Rate - Afr Amer 141 mL/min (>60); Estimated Creatinine Clearance 98.76 ml/min; Glucose 91 mg/dL (74-106); Potassium 2.9 mmol/L (3.5-5.1); Sodium Level 146 mmol/L (136-145)
--- NOTE | 2019-02-07 07:26 | PCM.PN.HOSP ---
Patient Problems: Active and Suspected Problems (Last Updated 02/06/19 @ 11:52 by Edelmira Cloud) STEMI (ST elevation myocardial infarction) (Acute) Subjective: Patient seen had a relatively uneventful night. Denies any chest pain no shortness of breath. Diagnostic data significant for potassium of 2.9 repletion initiated Objective: GENERAL: cooperative HEENT: Atraumatic; moist oral mucosa EYES; Anicteric, Normal Conjunctiva NECK; supple, normal thyroid, no distended JVD. RESPIRATORY: Diminished to auscultation bilaterally, CARDIOVASCULAR: Regular S1 S2, no audible murmurs GI: soft, non-tender, normoactive bowel sounds, : No Renal angle tenderness; EXTREMITIES: No edema, no clubbing, no cyanosis. MUSCULOSKELETAL: No Joint Tenderness; no muscle waisting NEURO: Awake; no lateralizing signs. SKIN: No Rash PSYCH; Normal affect Vitals/I&O's: Vital Signs Temp Pulse Resp BP Pulse Ox 98 F 61 14 125/69 H 97 02/07/19 04:00 02/07/19 06:00 02/07/19 06:00 02/07/19 06:00 02/07/19 06:41 Oxygen Flow Rate (L/min) 0 Oxygen Delivery Method Room Air Weight: 78.6 kg Body Mass Index (BMI) 28.3 Intake and Output for Last 24 Hours 02/05/19 02/06/19 02/07/19 23:59 23:59 23:59 Intake Total 1865 / 1865 200 / 200 Output Total 1300 / 1300 Balance 565 / 565 200 / 200 Laboratory Results 02/06/19 08:07: Activated Clotting Time 125 02/07/19 05:00: Sodium 146 H, Potassium 2.9 L, Chloride 113 H, Carbon Dioxide 24.0, Anion Gap 9, BUN 23 H, Creatinine 0.56, Estim Creat Clear Calc 98.76, Est GFR (MDRD) Af Amer 141, Est GFR (MDRD) Non-Af 117, BUN/Creatinine Ratio 41.0 H, Glucose 91, Calcium 8.1 L Current Medications Acetaminophen (Tylenol) 650 mg PO Q6H PRN PRN PRN Reason: Mild Pain (0-2/10) Last Admin: 02/06/19 13:51 Dose: 650 mg Documented by: Aliskiren (Tekturna) 150 mg PO DAILY [facility] Last Admin: 02/06/19 13:47 Dose: 150 mg Documented by: Amlodipine Besylate (Norvasc) 10 mg PO DAILY [facility] Last Admin: 02/06/19 13:46 Dose: 10 mg Documented by: Aspirin (Ecotrin) 81 mg PO DAILY@0800 [facility] Last Admin: 02/06/19 13:43 Dose: 81 mg Documented by: Atenolol (Tenormin (Beta Malcolm)) 50 mg PO BID [facility] Last Admin: 02/06/19 21:15 Dose: 50 mg Documented by: Atorvastatin Calcium (Lipitor) 80 mg PO QHS [facility] Last Admin: 02/06/19 21:14 Dose: 80 mg Documented by: Atropine Sulfate () 0.5 mg IV UD PRN PRN Reason: HR <50 bpm Bupropion HCl (Wellbutrin Xl) 300 mg PO DAILY [facility] Last Admin: 02/06/19 13:48 Dose: 300 mg Documented by: Calcium Carbonate (Tums) 500 mg PO BID [facility] Last Admin: 02/06/19 21:16 Dose: 500 mg Documented by: Cholecalciferol (Vitamin D) 2,000 unit PO DAILY [facility] Last Admin: 02/06/19 13:48 Dose: 2,000 unit Documented by: Clonidine (Catapres) 0.1 mg PO BID [facility] Last Admin: 02/06/19 21:15 Dose: 0.1 mg Documented by: Cyanocobalamin (Vitamin B12) 2,500 mcg PO DAILY [facility] Last Admin: 02/06/19 13:47 Dose: 2,500 mcg Documented by: Cyclobenzaprine HCl (Flexeril) 10 mg PO QHS [facility] Last Admin: 02/06/19 21:16 Dose: 10 mg Documented by: Dextrose (D50w Syringe) 0 gm IV X1 PRN; Protocol PRN Reason: Hypoglycemia Diazepam (Valium) 5 mg PO Q6H PRN PRN PRN Reason: BACK SPASMS/ANXIETY Last Admin: 02/06/19 05:58 Dose: 5 mg Documented by: Folic Acid (Folic Acid) 0.5 mg PO DAILY@0800 [facility] Last Admin: 02/06/19 13:43 Dose: 0.5 mg Documented by: Glucagon () 1 mg IM .X1 PRN PRN Reason: Hypoglycemia Heparin Sodium (Beef Lung) (Heparin 500 Unit/5 Ml (100/Ml)) 500 unit IV UD PRN PRN Reason: HEPARIN FLUSH Hydrochlorothiazide () 12.5 mg PO DAILY [facility] Last Admin: 02/06/19 07:26 Dose: 12.5 mg Documented by: Sodium Chloride () 250 mls @ 15 mls/hr IV .[id number] PRN PRN Reason: SALINE FLUSH Potassium Chloride 10 meq/ N/A 100 mls @ 100 mls/hr IV Q1H [facility] Stop: 02/07/19 11:29 Labetalol HCl (Trandate) 5 mg IV X1 PRN PRN Reason: SBP > 160 when pulling sheath Losartan Potassium (Cozaar) 100 mg PO DAILY [facility] Last Admin: 02/06/19 07:46 Dose: 100 mg Documented by: Magnesium Oxide (Mag-Ox 400) 400 mg PO DAILY [facility] Last Admin: 02/06/19 13:46 Dose: 400 mg Documented by: Metoclopramide HCl (Reglan) 5 mg IV Q6H PRN PRN PRN Reason: NAUSEA/VOMITING Metoprolol Tartrate (Lopressor (Beta Malcolm)) 12.5 mg PO BID [facility] Last Admin: 02/06/19 21:14 Dose: 12.5 mg Documented by: Morphine Sulfate () 2 mg IV Q4H PRN PRN PRN Reason: Mild back pain (0-2/10) Nitroglycerin (Nitrostat) 0.4 mg SUBLINGUAL Q5M PRN PRN Reason: CARDIAC/CHEST PAIN Potassium Chloride (K[facility]Dur) [facility] Sodium Chloride () 500 ml IV BOLUS PRN PRN Reason: VASO-VAGAL PROTOCOL Sodium Chloride () 10 - 40 ml IV UD PRN PRN Reason: SALINE FLUSH Ticagrelor (Brilinta) 90 mg PO BID [facility] Last Admin: 02/06/19 21:15 Dose: 90 mg Documented by: Medical Necessity - Tobacco Use Smoking Status: Never smoker Tobacco Use: Non-smoker Assessment/Plan All Active Problems (Last Updated 02/06/19 @ 11:52 by Edelmira Cloud) STEMI (ST elevation myocardial infarction) (Acute) Patient is a 59-year-old lady admitted with acute ST segment elevation [place] underwent emergency left heart catheterization with PTCA/HUGH of a 90% RCA lesion 1. Acute ST segment elevation [place] underwent emergency left heart catheterization with PTCA/HUGH of a 90% RCA lesion by Dr. Amador. Patient is currently on recommended medications including beta-blockers statin therapy and dual antiplatelet therapy 2. Hypertension-blood pressure controlled, home medications continued with dose adjustment as needed 3. Fibromyalgia: Pain under control 4. Dyslipidemia started on statin therapy 5. Hypokalemia of 2.9 on 02/07/2019 repleted per protocol 6. DVT prophylaxis SC Lovenox Code Visit Inpatient E&M: 88969 Subs Hosp L2
[2019-02-07 07:43] LABS: Magnesium 2.1 mg/dL (1.6-2.6)
[2019-02-07] MEDS: Aspirin E.C. 81 MG Tablet PO (08:11)
[2019-02-07] MEDS: Calcium Carbonate 500 MG Tablet PO ×2 (08:11→21:17)
[2019-02-07] MEDS: Atenolol 50 MG Tablet PO ×2 (08:11→21:15)
[2019-02-07] MEDS: Folic Acid 1 MG Tablet 0.5 MG PO (08:12)
[2019-02-07] MEDS: Metoprolol Tartrate 25 MG Tablet 12.5 MG PO (08:12)
[2019-02-07] MEDS: Losartan Potassium 100 MG Tablet PO (08:12)
[2019-02-07] MEDS: Cyanocobalamin 500 MCG Tablet 2500 MCG PO (08:12)
[2019-02-07] MEDS: hydroCHLOROthiazide 12.5mg 12.5 MG PO (08:13)
[2019-02-07] MEDS: cloNIDine HCl 0.1 MG Tablet PO ×2 (08:13→21:16)
[2019-02-07] MEDS: amLODIPine 10 MG Tablet PO (08:13)
[2019-02-07] MEDS: TICAGRELOR 90 MG TABLET PO ×2 (08:13→21:17)
[2019-02-07] MEDS: Magnesium Oxide 400 MG Tablet PO (08:14)
[2019-02-07] MEDS: ALISKIREN HEMIFUMARATE 150 MG PO (08:14)
[2019-02-07] MEDS: buPROPion (XL) 300 MG TABLET.XL PO (08:14)
[2019-02-07] MEDS: 0.9% NaCl IVPB Med Flush (250 mL) 15 ML IV ×2 (08:20→12:40)
[2019-02-07] MEDS: Enoxaparin 40 MG/0.4 ML Syringe SC (08:21)
--- NOTE | 2019-02-07 10:00 | EKG12_ITS ---
Test Reason : AM EKG Blood Pressure : / mmHG Vent. Rate : 066 BPM Atrial Rate : 066 BPM P-R Int : 218 ms QRS Dur : 098 ms QT Int : 440 ms P-R-T Axes : 050 008 -11 degrees QTc Int : 461 ms Sinus rhythm with 1st degree A-V block Nonspecific T-Wave Abnormality Confirmed by CARRIE CASTILLO, ANDIE ([id number]), video effects editor ALISSON HUFF ([id number]) on 02/11/2019 1:58:35 PM Referred By: Enzo Amador Confirmed By:ANDIE BUTLER MD
--- NOTE | 2019-02-07 10:20 | PN.CARD_ITS ---
Subjectve: The patient is awake and alert. She denies any ongoing chest discomfort or difficulty breathing. She does have discomfort with respect to her right upper extremity IV with IV potassium infusion. Objective: Vital Signs Temp Pulse Resp BP Pulse Ox 98 F 74 14 125/69 H 97 02/07/19 04:00 02/07/19 08:12 02/07/19 06:00 02/07/19 06:00 02/07/19 06:41 Oxygen Flow Rate (L/min) 0 Oxygen Delivery Method Room Air Weight: 173 lb 4.533 oz Body Mass Index (BMI) 28.3 Intake and Output for Last 24 Hours 02/05/19 02/06/19 02/07/19 23:59 23:59 23:59 Intake Total 1865 / 1865 200 / 200 Output Total 1300 / 1300 Balance 565 / 565 200 / 200 General: Awake, Alert, Oriented x 3, Cooperative, No Acute Distress HEENT: Atraumatic, Normocephalic, PERRL, EOMI, Sclera Non Icteric Oral: Moist Mucosa Neck: Supple, Good ROM, No JVD Lungs: Clear to auscultation Cardiovascular: Regular Rhythm, Normal S1, Normal S2 Vascular: Normal Femoral Pulses Abdomen: Bowel Sounds Present, Soft, Non Tender Extremities: No edema Neurological: No Focal Motor or Sensory Deficit Psych/Mental Status: Appropriate 02/07/19 05:00: Sodium 146 H, Potassium 2.9 L, Chloride 113 H, Carbon Dioxide 24.0, Anion Gap 9, BUN 23 H, Creatinine 0.56, Est GFR (MDRD) Af Amer 141, Est GFR (MDRD) Non-Af 117, BUN/Creatinine Ratio 41.0 H, Glucose 91, Calcium 8.1 L 02/07/19 05:00: Magnesium 2.1 Rhythm: Sinus rhythm EKG: Sinus rhythm; nonspecific ST/T wave abnormality ECHO: Interpretation Summary The estimated ejection fraction is 55 %. Stage 1 diastolic dysfunction. Infero-Basal: Mildly hypokinetic Trivial tricuspid valve insufficiency. Right ventricular systolic pressure estimated to be 23 mmHg. The study was technically difficult. There is no comparison study available. Contrast injection was performed. Medical Necessity - Tobacco Use Smoking Status: Never smoker Tobacco Use: Non-smoker Assessment/Plan 1. Acute inferolateral myocardial infarction: STEMI The patient is recuperating from her acute coronary syndrome event. She is without acute symptoms at this time. She is continuing to be monitored. Her rhythm has remained sinus rhythm. Her ECG has demonstrated sinus rhythm with nonspecific ST and T wave abnormality. Her echocardiographic changes are as noted above. She is continuing medical therapy. It appears that she is listed as being on dual beta-jovon therapy at this time. This will be adjusted. Also, based upon her blood pressures being somewhat lower her antihypertensive regimen will be adjusted as well. She will be considered for transfer to the PCU for continued cardiac telemetry monitoring. If she continues to improve then she will be considered for release home, pot entially tomorrow, for continued outpatient follow-up in the near future. 2. Hyperlipidemia She does need to continue risk factor modification medical therapy as deemed appropriate. 3. Hypertension Again her blood pressures are somewhat low at this time. Her antihypertensive regimen will be reviewed. Her medications can be adjusted. Comment: The above was discussed and reviewed with the patient and her spouse. This note was generated with [employer] dictation software. It may contain incorrect words, spelling, and punctuation that were not noted in checking the note before signing.
[2019-02-07 15:05] LABS: Potassium 4.7 mmol/L (3.5-5.1)
[2019-02-07] MEDS: Atorvastatin Calcium 80 MG Tablet PO (21:15)
[2019-02-07] MEDS: cycloBENZAPRine HCl 10 MG Tablet PO (21:15)
[2019-02-08 02:03] VITALS: BP 134/70; PULSE 72; RESP 15; TEMP 36.8; O2SAT 100
[2019-02-08 03:00] VITALS: PULSE 65
[2019-02-08] MEDS: Enoxaparin 40 MG/0.4 ML Syringe SC (05:25)
[2019-02-08 05:27] LABS: Anion Gap 6 (5-15); BUN 20 mg/dL (7-18); Calcium,Total 9.5 mg/dL (8.5-10.1); Chloride 110 mmol/L (98-107); EST Glomerular Filtration Rate 78 mL/min (>60); Est Glom Filt Rate - Afr Amer 94 mL/min (>60); Estimated Creatinine Clearance 69.13 ml/min; Glucose 107 mg/dL (74-106); Potassium 5.2 mmol/L (3.5-5.1); Sodium Level 144 mmol/L (136-145)
[2019-02-08 06:42] VITALS: O2SAT 97
[2019-02-08 07:00] VITALS: PULSE 70
--- NOTE | 2019-02-08 07:32 | PCM.PN.HOSP ---
Patient Problems: Active and Suspected Problems (Last Updated 02/06/19 @ 11:52 by Edelmira Cloud) STEMI (ST elevation myocardial infarction) (Acute) Subjective: Patient seen had a relatively uneventful night plan is a patient to be discharged home later this morning pending evaluation from cardiology Objective: GENERAL: cooperative HEENT: Atraumatic; moist oral mucosa EYES; Anicteric, Normal Conjunctiva NECK; supple, normal thyroid, no distended JVD. RESPIRATORY: Diminished to auscultation bilaterally, CARDIOVASCULAR: Regular S1 S2, no audible murmurs GI: soft, non-tender, normoactive bowel sounds, : No Renal angle tenderness; EXTREMITIES: No edema, no clubbing, no cyanosis. MUSCULOSKELETAL: No Joint Tenderness; no muscle waisting NEURO: Awake; no lateralizing signs. SKIN: No Rash PSYCH; Normal affect Vitals/I&O's: Vital Signs Temp Pulse Resp BP Pulse Ox 98.2 F 65 15 134/70 H 100 02/08/19 02:03 02/08/19 03:00 02/08/19 02:03 02/08/19 02:03 02/08/19 02:03 Oxygen Flow Rate (L/min) 0 Oxygen Delivery Method Room Air Weight: 79.6 kg Body Mass Index (BMI) 28.3 Intake and Output for Last 24 Hours 02/06/19 02/07/19 02/08/19 23:59 23:59 23:59 Intake Total 1865 / 1865 2210 / 2210 100 / 100 Output Total 1300 / 1300 Balance 565 / 565 2210 / 2210 100 / 100 Laboratory Results 02/07/19 05:00: Magnesium 2.1 02/07/19 14:50: Potassium 4.7 02/08/19 04:40: Sodium 144, Potassium 5.2 H, Chloride 110 H, Carbon Dioxide 28.0, Anion Gap 6, BUN 20 H, Creatinine 0.80, Estim Creat Clear Calc 69.13, Est GFR (MDRD) Af Amer 94, Est GFR (MDRD) Non-Af 78, BUN/Creatinine Ratio 25.0 H, Glucose 107 H, Calcium 9.5 Current Medications Acetaminophen (Tylenol) 650 mg PO Q6H PRN PRN PRN Reason: Mild Pain (0-2/10) Last Admin: 02/06/19 13:51 Dose: 650 mg Documented by: [place] (Tekturna) 150 mg PO DAILY [facility] Last Admin: 02/07/19 08:14 Dose: 150 mg Documented by: Amlodipine Besylate (Norvasc) 10 mg PO DAILY [facility] Last Admin: 02/07/19 08:13 Dose: 10 mg Documented by: Aspirin (Ecotrin) 81 mg PO DAILY@0800 [facility] Last Admin: 02/07/19 08:11 Dose: 81 mg Documented by: Atenolol (Tenormin (Beta Malcolm)) 50 mg PO BID [facility] Last Admin: 02/07/19 21:15 Dose: 50 mg Documented by: Atorvastatin Calcium (Lipitor) 80 mg PO QHS [facility] Last Admin: 02/07/19 21:15 Dose: 80 mg Documented by: Atropine Sulfate () 0.5 mg IV UD PRN PRN Reason: HR <50 bpm Bupropion HCl (Wellbutrin Xl) 300 mg PO DAILY [facility] Last Admin: 02/07/19 08:14 Dose: 300 mg Documented by: Calcium Carbonate (Tums) 500 mg PO BID [facility] Last Admin: 02/07/19 21:17 Dose: 500 mg Documented by: Cholecalciferol (Vitamin D) 2,000 unit PO DAILY [facility] Last Admin: 02/07/19 08:13 Dose: 2,000 unit Documented by: Clonidine (Catapres) 0.1 mg PO BID [facility] Last Admin: 02/07/19 21:16 Dose: 0.1 mg Documented by: Cyanocobalamin (Vitamin B12) 2,500 mcg PO DAILY [facility] Last Admin: 02/07/19 08:12 Dose: 2,500 mcg Documented by: Cyclobenzaprine HCl (Flexeril) 10 mg PO QHS [facility] Last Admin: 02/07/19 21:15 Dose: 10 mg Documented by: Dextrose (D50w Syringe) 0 gm IV X1 PRN; Protocol PRN Reason: Hypoglycemia Diazepam (Valium) 5 mg PO Q6H PRN PRN PRN Reason: BACK SPASMS/ANXIETY Last Admin: 02/06/19 05:58 Dose: 5 mg Documented by: Enoxaparin Sodium (Lovenox) 40 mg SC DAILY@0600 [facility] Last Admin: 02/08/19 05:25 Dose: 40 mg Documented by: Folic Acid (Folic Acid) 0.5 mg PO DAILY@0800 [facility] Last Admin: 02/07/19 08:12 Dose: 0.5 mg Documented by: Glucagon () 1 mg IM .X1 PRN PRN Reason: Hypoglycemia Heparin Sodium (Beef Lung) (Heparin 500 Unit/5 Ml (100/Ml)) 500 unit IV UD PRN PRN Reason: HEPARIN FLUSH Hydrochlorothiazide () 12.5 mg PO DAILY [facility] Last Admin: 02/07/19 08:13 Dose: 12.5 mg Documented by: Sodium Chloride () 250 mls @ 15 mls/hr IV .[id number] PRN PRN Reason: SALINE FLUSH Last Admin: 02/07/19 12:40 Dose: 15 mls/hr Documented by: Labetalol HCl (Trandate) 5 mg IV X1 PRN PRN Reason: SBP > 160 when pulling sheath Magnesium Oxide (Mag-Ox 400) 400 mg PO DAILY [facility] Last Admin: 02/07/19 08:14 Dose: 400 mg Documented by: Metoclopramide HCl (Reglan) 5 mg IV Q6H PRN PRN PRN Reason: NAUSEA/VOMITING Morphine Sulfate () 2 mg IV Q4H PRN PRN PRN Reason: Mild back pain (0-2/10) Nitroglycerin (Nitrostat) 0.4 mg SUBLINGUAL Q5M PRN PRN Reason: CARDIAC/CHEST PAIN [facility] Admin: 02/07/19 16:19 Dose: 20 meq Documented by: Sodium Chloride () 500 ml IV BOLUS PRN PRN Reason: VASO-VAGAL PROTOCOL Sodium Chloride () 10 - 40 ml IV UD PRN PRN Reason: SALINE FLUSH Ticagrelor (Brilinta) 90 mg PO BID [facility] Last Admin: 02/07/19 21:17 Dose: 90 mg Documented by: Medical Necessity - Tobacco Use Smoking Status: Never smoker Tobacco Use: Non-smoker Assessment/Plan All Active Problems (Last Updated 02/06/19 @ 11:52 by Edelmira Cloud) STEMI (ST elevation myocardial infarction) (Acute) Patient is a 59-year-old lady admitted with acute ST segment elevation [place] underwent emergency left heart catheterization with PTCA/HUGH of a 90% RCA lesion 1. Acute ST segment elevation [place] underwent emergency left heart catheterization with PTCA/HUGH of a 90% RCA lesion by Dr. Amador. Patient is currently on recommended medications including beta-blockers statin therapy and dual antiplatelet therapy 02/08/2019 plan is for patient to be discharged home pending evaluation by cardiology 2. Hypertension-blood pressure controlled, home medications continued with dose adjustment as needed 3. Fibromyalgia: Pain under control 4. Dyslipidemia started on statin therapy 5. Hypokalemia of 2.9 on 02/07/2019 repleted per protocol 02/08/2019 potassium 5.2 6. DVT prophylaxis SC Lovenox Code Visit Inpatient E&M: 55321 Subs Hosp L2
[2019-02-08 08:30] VITALS: BP 125/63; PULSE 75; RESP 20; TEMP 36.8; O2SAT 98
[2019-02-08] MEDS: Aspirin E.C. 81 MG Tablet PO (08:46)
[2019-02-08] MEDS: Folic Acid 1 MG Tablet 0.5 MG PO (08:46)
[2019-02-08] MEDS: TICAGRELOR 90 MG TABLET PO (08:47)
[2019-02-08] MEDS: cloNIDine HCl 0.1 MG Tablet PO (08:47)
[2019-02-08] MEDS: hydroCHLOROthiazide 12.5mg 12.5 MG PO (08:48)
[2019-02-08] MEDS: Atenolol 50 MG Tablet PO (08:49)
[2019-02-08] MEDS: amLODIPine 10 MG Tablet PO (08:49)
[2019-02-08] MEDS: Magnesium Oxide 400 MG Tablet PO (08:49)
[2019-02-08] MEDS: ALISKIREN HEMIFUMARATE 150 MG PO (08:49)
[2019-02-08] MEDS: Calcium Carbonate 500 MG Tablet PO (08:50)
[2019-02-08] MEDS: buPROPion (XL) 300 MG TABLET.XL PO (08:50)
[2019-02-08] MEDS: Cyanocobalamin 500 MCG Tablet 2500 MCG PO (08:50)
--- NOTE | 2019-02-08 09:03 | PN.CARD_ITS ---
Subjectve: Patient doing very well this morning. Telemetry negative. No 24-hour events. Right groin is clean/dry/intact without evidence of thrills, bruits or hematoma. EKG shows normal sinus rhythm with solving inferior wall myocardial infarction. Hemoglobin and creatinine within nominal limits. Objective: Vital Signs Temp Pulse Resp BP Pulse Ox 98.2 F 65 15 134/70 H 97 02/08/19 02:03 02/08/19 03:00 02/08/19 02:03 02/08/19 02:03 02/08/19 06:42 Oxygen Flow Rate (L/min) 0 Oxygen Delivery Method Room Air Weight: 175 lb 7.807 oz Body Mass Index (BMI) 28.3 Intake and Output for Last 24 Hours 02/06/19 02/07/19 02/08/19 23:59 23:59 23:59 Intake Total 1865 / 1865 2210 / 2210 100 / 100 Output Total 1300 / 1300 Balance 565 / 565 2210 / 2210 100 / 100 General: Awake, Alert, Oriented x 3 HEENT: PERRL, EOMI, Sclera Non Icteric Neck: Supple, Good ROM, No Lymph Node Enlargement Lungs: Clear to auscultation Cardiovascular: Regular Rhythm, Normal S1, Normal S2, No Murmurs, No Rubs, No Gallops Vascular: No Carotid Bruits, Normal Femoral Pulses, Normal Radial Pulses, Normal Dorsalis Pedal Pulse, Normal Posterior Tibial Pulses Abdomen: Bowel Sounds Present, Soft, Non Tender, No HSM, No Organomegaly Extremities: No Cyanosis, No Clubbing, No edema Neurological: No Focal Motor or Sensory Deficit 02/07/19 14:50: Potassium 4.7 02/08/19 04:40: Sodium 144, Potassium 5.2 H, Chloride 110 H, Carbon Dioxide 28.0, Anion Gap 6, BUN 20 H, Creatinine 0.80, Est GFR (MDRD) Af Amer 94, Est GFR (MDRD) Non-Af 78, BUN/Creatinine Ratio 25.0 H, Glucose 107 H, Calcium 9.5 Rhythm: EKG: ECHO: Stress Test: Cardiac Cath: PCI: CT Surgery: Holter monitor: EPS: PPM: CXR: Chest CT Scan: Medical Necessity - Tobacco Use Smoking Status: Never smoker Tobacco Use: Non-smoker Assessment/Plan 1. Coronary artery disease: Patient presented last evening with unstable angina, chest pain, but originally her EKG showed subtle nonspecific ST segment changes. Patient was treated medically and her pain abated, however then returned later on that evening. Repeat EKG demonstrated acute inferior lateral wall myocardial infarction. Patient was emergently brought to [facility] where she underwent emergent left her catheterization which showed nonobstructive disease of her LAD and left circumflex, as well as 2 tandem lesions in her mid RCA of approximately 85 and 95%. Patient underwent successful emergent heparin and Brilinta assisted angioplasty and stenting receiving a 3.0X 38 Promus drug-eluting stent. This morning she is doing fairly well. She denies any chest pain. Her vitals are stable. Echocardiogram done the day after her procedure demonstrated intact LV function. No additional testing needed at this time. No additional evaluation of her LAD and circumflex are required at this time. We will discontinue her Tekturna, and switch her to Cozaar 25 mg p.o. daily. She will continue atenolol, baby aspirin, Brilinta. She will then be enrolled in cardiac rehab and then we will repeat her echocardiogram in 3 to 4 months time to determine if her LV function has optimized. 2. Hyperlipidemia: Her LDL is 115 and HDL is 52. Continue statin based on Lipitor therapy. Repeat lipid profile in 6 weeks time. 3. Thank you very much for the opportunity to participate in the cardiac care of your patient. Patient may be discharged home today. She may follow-up with Dr. Amador going forward. Code Visit Inpatient E&M: 99399 Subs Hosp L2
--- NOTE | 2019-02-08 09:33 | PCM.DC ---
- Discharge Diagnoses Current Active Problems: Current Active and Chronic Problems (Last Updated 02/06/19 @ 11:52 by Edelmira Cloud) Atherosclerotic heart disease of [place] coronary artery without angina pectoris (Chronic) Single vessel CAD of the RCA Non obstructive coronary arteries Successful PTCA/HUGH mid RCA with a 3.0 x 38 Promus Synergy, 95%-->0%, no dissection. Stented coronary artery (Chronic 02/06/19) Single vessel CAD of the RCA; Non obstructive coronary arteries; Successful PTCA/HUGH mid RCA with a 3.0 x 38 Promus Synergy, 95%-->0%, no dissection. STEMI (ST elevation myocardial infarction) (Acute) You will use the following diet at home:: Cardiac Discharge Activity: Return to Normal Activity Allergies/Adverse Reactions: Allergies No Known Allergies Allergy (Verified 02/05/19 21:32) Medications to take at Discharge Amlodipine [Norvasc] 10 mg PO DAILY 02/05/19 Aspirin [Aspirin, Baby] 81 mg PO DAILY@0800 02/05/19 Atenolol [Tenormin] 50 mg PO BID 02/05/19 Calcium Citrate 630 mg PO BID 02/05/19 Cholecalciferol (Vitamin D3) [Vitamin D3] 2,000 unit PO DAILY 02/05/19 Chondroitin Sulfate A Sodium [Chondroitin Sulfate] 1,250 gm PO DAILY 02/05/19 Clonidine HCl [Catapres] 0.1 mg PO BID 02/05/19 Cyanocobalamin (Vitamin B-12) [B-12] 2,500 mcg PO DAILY 02/05/19 Folic Acid 0.4 mg PO DAILY@0800 02/05/19 Glucosamine HCl 1,500 mg PO DAILY 02/05/19 Magnesium Oxide 500 mg PO DAILY 02/05/19 Olmesartan/Hydrochlorothiazide [Benicar Hct 40-12.5 MG Tab] 1 tab PO DAILY 02/05/19 buPROPion XL [Wellbutrin Xl] 300 mg PO DAILY 02/05/19 cycloBENZAPRine HCl [Flexeril] 10 mg PO QHS 02/05/19 Atorvastatin Calcium [Lipitor] 80 mg PO QHS #90 tab 02/08/19 Ticagrelor [Brilinta] 90 mg PO BID #180 tab 02/08/19 The following prescriptions were given: Ticagrelor [Brilinta] 90 mg PO BID #180 tab Transmission Status: Pending to [id number] Atorvastatin Calcium [Lipitor] 80 mg PO QHS #90 tab Transmission Status: Pending to [id number] Orders to be completed after discharge: Phase II, Outpatient Cardiac Rehab Location: None Selected Primary Care Physician: Care Physician,No Primary [Primary Care Provider] - Please follow up with your Primary Care Physician in: in 5-7 days Test Results: Test results from this visit will be discussed in further detail at your follow-up appointment, if applicable. Please Follow Up With: Maura Amador MD When: in 2-3 weeks Proposed Discharge Date: 02/08/19
--- NOTE | 2019-02-08 09:34 | DS.PCM_ITS ---
Discharge Date and Diagnosis - Problem List Patient Problems: Active and Suspected Problems (Last Updated 02/06/19 @ 11:52 by Edelmira Cloud) STEMI (ST elevation myocardial infarction) (Acute) Date of Admission: 02/06/19 Date of Discharge: 02/08/19 - Primary Discharge Diagnosis Active and Suspected Problems (Last Updated 02/06/19 @ 11:52 by Edelmira Cloud) STEMI (ST elevation myocardial infarction) (Acute) - Secondary Discharge Diagnosis Chronic Problems (Last Updated 02/06/19 @ 11:52 by Edelmira Cloud) Atherosclerotic heart disease of [place] coronary artery without angina pectoris (Chronic) Single vessel CAD of the RCA Non obstructive coronary arteries Successful PTCA/HUGH mid RCA with a 3.0 x 38 Promus Synergy, 95%-->0%, no dissection. Stented coronary artery (Chronic 02/06/19) Single vessel CAD of the RCA; Non obstructive coronary arteries; Successful PTCA/HUGH mid RCA with a 3.0 x 38 Promus Synergy, 95%-->0%, no dissection. Hospital Course and Treatment Imaging Results: Clinical Impression(s) from Imaging Studies Chest X-Ray 02/05/19 21:38 IMPRESSION: Normal x-ray examination of the chest. Electronically Signed: Juan Sesay DO at 21:54 EDT Tel [phone], Service support , The echo report: The estimated ejection fraction is 55 %. Stage 1 diastolic dysfunction. Infero-Basal: Mildly hypokinetic Trivial tricuspid valve insufficiency. Right ventricular systolic pressure estimated to be 23 mmHg. The study was technically difficult. There is no comparison study available. Contrast injection was performed. Summary of Care Provided: Patient is a 59-year-old lady admitted with acute ST segment elevation [place] underwent emergency left heart catheterization with PTCA/HUGH of a 90% RCA lesion 1. Acute ST segment elevation [place] underwent emergency left heart catheterization with PTCA/HUGH of a 90% RCA lesion by Dr. Amador. Patient was managed on recommended medications including beta-blockers statin therapy and dual antiplatelet therapy 2. Hypertension-blood pressure controlled, home medications continued with dose adjustment as needed 3. Fibromyalgia: Pain under control 4. Dyslipidemia started on statin therapy 5. Hypokalemia of 2.9 on 02/07/2019 repleted per protocol; 02/08/2019 potassium 5.2 6. DVT prophylaxis SC Lovenox Patient Problems: Active and Suspected Problems (Last Updated 02/06/19 @ 11:52 by Edelmira Cloud) STEMI (ST elevation myocardial infarction) (Acute) Objective: GENERAL: cooperative HEENT: Atraumatic; moist oral mucosa EYES; Anicteric, Normal Conjunctiva NECK; supple, normal thyroid, no distended JVD. RESPIRATORY: Diminished to auscultation bilaterally, CARDIOVASCULAR: Regular S1 S2, no audible murmurs GI: soft, non-tender, normoactive bowel sounds, : No Renal angle tenderness; EXTREMITIES: No edema, no clubbing, no cyanosis. MUSCULOSKELETAL: No Joint Tenderness; no muscle waisting NEURO: Awake; no lateralizing signs. SKIN: No Rash PSYCH; Normal affect - Physical Exam Vital Signs Temp Pulse Resp BP Pulse Ox 98.2 F 65 15 134/70 H 97 02/08/19 02:03 02/08/19 03:00 02/08/19 02:03 02/08/19 02:03 02/08/19 06:42 Oxygen Flow Rate (L/min) 0 Oxygen Delivery Method Room Air Weight: 79.6 kg Body Mass Index (BMI) 28.3 Intake and Output for Last 24 Hours 02/06/19 02/07/19 02/08/19 23:59 23:59 23:59 Intake Total 1865 / 1865 2210 / 2210 100 / 100 Output Total 1300 / 1300 Balance 565 / 565 2210 / 2210 100 / 100 Laboratory Tests Past 24 Hrs 02/07/19 02/08/19 14:50 04:40 Sodium 144 Potassium 4.7 5.2 H Chloride 110 H Carbon Dioxide 28.0 Anion Gap 6 BUN 20 H Creatinine 0.80 Estim Creat Clear Calc 69.13 Est GFR (MDRD) Af Amer 94 Est GFR (MDRD) Non-Af 78 BUN/Creatinine Ratio 25.0 H Glucose 107 H Calcium 9.5 Discharge Activity: Return to Normal Activity Home Medications: Medications to take at Discharge Amlodipine [Norvasc] 10 mg PO DAILY 02/05/19 Aspirin [Aspirin, Baby] 81 mg PO DAILY@0800 02/05/19 Atenolol [Tenormin] 50 mg PO BID 02/05/19 Calcium Citrate 630 mg PO BID 02/05/19 Cholecalciferol (Vitamin D3) [Vitamin D3] 2,000 unit PO DAILY 02/05/19 Chondroitin Sulfate A Sodium [Chondroitin Sulfate] 1,250 gm PO DAILY 02/05/19 Clonidine HCl [Catapres] 0.1 mg PO BID 02/05/19 Cyanocobalamin (Vitamin B-12) [B-12] 2,500 mcg PO DAILY 02/05/19 Folic Acid 0.4 mg PO DAILY@0800 02/05/19 Glucosamine HCl 1,500 mg PO DAILY 02/05/19 Magnesium Oxide 500 mg PO DAILY 02/05/19 Olmesartan/Hydrochlorothiazide [Benicar Hct 40-12.5 MG Tab] 1 tab PO DAILY 02/05/19 buPROPion XL [Wellbutrin Xl] 300 mg PO DAILY 02/05/19 cycloBENZAPRine HCl [Flexeril] 10 mg PO QHS 02/05/19 Atorvastatin Calcium [Lipitor] 80 mg PO QHS #90 tab 02/08/19 Ticagrelor [Brilinta] 90 mg PO BID #180 tab 02/08/19 Following Prescrptions Were Given to Patient: Ticagrelor [Brilinta] 90 mg PO BID #180 tab Transmission Status: Pending to [id number] Atorvastatin Calcium [Lipitor] 80 mg PO QHS #90 tab Transmission Status: Pending to [id number] Other Amb Orders: Phase II, Outpatient Cardiac Rehab Location: None Selected Primary Care Physician: Care Physician,No Primary [Primary Care Provider] - Please follow up with your Primary Care Physician in: in 5-7 days Please Follow Up With: Maura Amador MD When: in 2-3 weeks Medical Necessity - Tobacco Use Smoking Status: Never smoker Tobacco Use: Non-smoker Meaningful Use Info Meaningful Use Diagnoses (Choose all that apply): AMI - AMI Aspirin given w/in 24hrs of arrival?: Yes ASA at discharge?: Yes Statins at discharge?: Yes Param/ARB at discharge?: Yes Beta Malcolm at discharge?: Yes Done w/ Acute ME measure.: Yes Documented LVEF (%): 55 Code Visit Inpatient E&M: 22148 Disch Hosp
--- NOTE | 2019-02-08 10:00 | EKG12_ITS ---
Test Reason : AM EKG Blood Pressure : / mmHG Vent. Rate : 070 BPM Atrial Rate : 070 BPM P-R Int : 202 ms QRS Dur : 098 ms QT Int : 420 ms P-R-T Axes : 055 002 092 degrees QTc Int : 453 ms Normal sinus rhythm Nonspecific ST/T Wave Abnormality Confirmed by CARRIE CASTILLO, ANDIE ([id number]), news copy editor ALISSON HUFF ([id number]) on 02/11/2019 2:04:05 PM Referred By: Enzo Amador Confirmed By:ANDIE BUTLER MD
[2019-02-08 11:00] VITALS: BP 120/67; PULSE 75; RESP 18; TEMP 36.8; O2SAT 98
== END 2019-02-08 11:43 | disposition home or self-care (01) | DRG 247 ==
LOC: ED 23:57 → ICU 02-06 00:16
PROVIDERS: Admitting Provider Hospitalist; Emergency Provider Emergency Medicine; Referring Provider Internal Medicine Cardiovascular Disease; Visit Provider Internal Medicine
DX: I21.19 ST elevation (STEMI) myocardial infarction involving other coronary artery of inferior wall (principal); I10 Essential (primary) hypertension; M79.7 Fibromyalgia; M19.90 Unspecified osteoarthritis, unspecified site; E78.5 Hyperlipidemia, unspecified; I25.10 Atherosclerotic heart disease of native coronary artery without angina pectoris; E87.6 Hypokalemia
CPT/HCPCS: 71046; 80048; 80061; 83735; 84132; 84484; 85025; 85027; 85347; 85610; 85730; 92941; 93005; 93306; 93458; 99285; J7030; J7050; Q9957; A4216; C1725; C1769; C1874; C1887; C1894; C8929; C9606; Q9967

== ENCOUNTER → 2019-04-09 | Outpatient (CLI) | payer BC, SELFPAY ==
[2019-02-06 10:02] VITALS: BMI 28.0
[2019-03-07 13:14] VITALS: BMI 27.4
--- NOTE | 2019-04-09 12:08 | PCM.CR.HP2 ---
CR - History & Physical - General Arrival date:: 04/09/19 Arrival time:: 11:40 Date of Referral:: 02/06/19 Date of CR Evaluation:: 04/09/19 Referring Physician: DR JACKSON Primary Diagnosis: PCI WITH STENT - History of Present Cardiac Event Onset Date: Enter Onset Date of cardiac illnesses in Comment field below Current stable Angina Pectoris:: No Acute Myocardial Infarction within 12 months:: Yes Coronary Artery Bypass Graft:: No Heart valve replacement or repair:: No PTCA or coronary stenting:: Yes - STENT X1 Heart or Heart-Lung Transplant:: No Heart Failure EF <35%:: No Type of Symptoms:: CLASSIC SYMPTOMS, C.P., ARM AND JAW PAIN Interventions with present event:: STENT X1 AND ANGIOPLASTY - Medications Home Medications: Ambulatory Orders Medication Instructions Recorded Amlodipine [Norvasc] 10 mg PO DAILY 02/05/19 Aspirin [Aspirin, Baby] 81 mg PO DAILY@0800 02/05/19 Atenolol [Tenormin] 50 mg PO BID 02/05/19 Calcium Citrate 630 mg PO BID 02/05/19 Cholecalciferol (Vitamin D3) 2,000 unit PO DAILY 02/05/19 [Vitamin D3] Clonidine HCl [Catapres] 0.1 mg PO BID 02/05/19 Cyanocobalamin (Vitamin B-12) 2,500 mcg PO DAILY 02/05/19 [B-12] Folic Acid 0.4 mg PO DAILY@0800 02/05/19 Glucosamine HCl 1,500 mg PO DAILY 02/05/19 Magnesium Oxide 500 mg PO DAILY 02/05/19 Olmesartan/Hydrochlorothiazide 1 tab PO DAILY 02/05/19 [Benicar Hct 40-12.5 MG Tab] buPROPion XL [Wellbutrin Xl] 300 mg PO DAILY 02/05/19 cycloBENZAPRine HCl [Flexeril] 10 mg PO QHS 02/05/19 atorvastatin 80 mg tablet 80 mg PO QHS #90 tab 03/07/19 ticagrelor 90 mg tablet 90 mg PO BID #180 tab 03/07/19 - Allergies Allergies/Adverse Reactions: Allergies No Known Allergies Allergy (Verified 03/07/19 13:12) - Sleep Disorder Evaluation Hx of Sleep Apnea: No Do you snore loudly (louder than talking or can be heard through closed doors)?: No Do you often feel tired/ fatigued/ sleepy during daytime?: No - FEELS ITS FROM FIBROMYALGIA Has anyone observed you stop breathing during sleep?: No History of Hypertension (for STOP score): Yes STOP Results: Negative Advanced Directives - Advanced Directives Power of Reproducer: Yes Living Will: Yes Advance Directives Information Provided: Yes Advance Directives on File: Yes - PT STATES SHE HAS THEM ENCOURAGED TO BRING COPY TO [facility] DNR Order?:: No Past Medical History - Past Medical Illness Medical History: Past Medical History (Last Updated 02/06/19 @ 11:52 by Edelmira Cloud) Atherosclerotic heart disease of [place] coronary artery without angina pectoris (Chronic) I25.10 Single vessel CAD of the RCA Non obstructive coronary arteries Successful PTCA/HUGH mid RCA with a 3.0 x 38 Promus Synergy, 95%-->0%, no dissection. HTN (hypertension) I10 - Past Surgical History Surgical History: Past Surgical History (Last Updated 02/06/19 @ 11:52 by Edelmira Cloud) Stented coronary artery (Chronic) Onset Date: 02/06/19 Z95.5 Single vessel CAD of the RCA; Non obstructive coronary arteries; Successful PTCA/HUGH mid RCA with a 3.0 x 38 Promus Synergy, 95%-->0%, no dissection. 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 Social History - Smoking History Smoking Status: Never smoker - Alcohol Use Alcohol Usage: No - Substance Abuse Hx Substance Use: No - Occupation Occupation (List type of work in comments):: Homemaker - Hobbies, Recreation, Social Activities Hobbies: Reading, Other - MUSIC Recreational Activities: I am able to engage in a few activities Social Environment - Status Marital Status: - Current Living Arrangements Living Environment:: Spouse - Children How many children do you have?: 2 Do any of your children live nearby?: No - Safety Do you feel safe in your surroundings?: Yes - Assistance Do you need any assistance at home?: NONE Review of Systems - Review of Systems Hints: Right click = Denies (Slash). Left click = Reports ([place]) Review of Present Symptoms: Reports: Fatigue - FIBROMYALGIA SOURCE, Appetite - Normal, Appetite - Special Diet, Sleep - Normal. 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) - Blood Cholesterol/Lipids Total Cholesterol (mg/dL) Goal = less than 200 mg/dL: 183 HDL Cholesterol (mg/dL) Goal = less than 40 mg/dL: 52 LDL Cholesterol (mg/dL) Goal = less than 70 mg/dL: 113 Triglycerides (mg/dL) Goal = less than 150 mg/dL: 92 - Diabetes Nutrition Referral for Diabetes: No - Obesity Height: 5 ft 6 in Weight:: 170 lb Weight in Pounds: 170.0 lbs Weight Source: Stated by Patient Body Mass Index (BMI): 27.4 Nutritional Referral for Obesity: No - Physical Inactivity Physical Inactivity: None - Risk Stratification Risk Guidelines: Lowest Risk: Risk Factor for Smoking, Risk Factor for Dyslipidemia, Risk Factor for Diabetes, Risk Factor for Obesity, Moderate Risk: Risk Factor for Sedentary Lifestyle, Risk Factor for Depression - TAKES WELLBUTRIN, Highest Risk: Risk Factor for Hypertension - 138/90 - For Smoking Smoking Risk Guidelines: Smoking Low Risk: None or quit greater than 6 months ago. Smoking Moderate Risk: Smoker or quit 6 months or less ago. Smoking High Risk: Smoker - For Dyslipidemia Dyslipidemia Risk Guidelines: Low Risk: Moderate Risk: High Risk: 15-25% fat 25.1-29% fat >/= 30% fat. <7% sat fat 7-9% sat fat >9% sat fat. <150 mg chol 150-299 mg chol >/= 300 mg chol. LDL <100 LDL 100-129 LDL >/= 130. Chol/HDL ratio <5.0 Chol/HDL ratio 5.0-6.0 Chol/HDL ratio >6.0. Triglycerides <100 Triglycerides 100-149 Triglycerides >/= 150 - For Diabetes Mellitus Diabetes Risk Guidelines: Diabetes Low Risk: HgA1c <6.5% and/or FBG <120. Diabetes Moderate Risk: HgA1c 6.6-7.9% and/or FBG 120-180. Diabetes High Risk: HgA1c >/= 8% and/or FBG >180 - For Obesity/Overweight Obesity/Overweight Risk Guidelines: Obesity Low Risk: BMI <25.0. Obesity Moderate Risk: BMI 25-29.9. Obesity High Risk: BMI >/= 30.0 - For Hypertension Hypertension Risk Guidelines: Hypertension Low Risk: Systolic <120 and Diastolic <80. Hypertension Moderate Risk: Systolic 120-139 and Diastolic 80-89. Hypertension High Risk: Systolic >/= 140 and Diastolic >/= 90 - For Sedentary Lifestyle Sedentary Lifestyle Risk Guidelines: Sedentary Lifestyle Low Risk: >/= 1,500 kcal/week. Sedentary Lifestyle Moderate Risk: 700-1,499 kcal/week. Sedentary Lifestyle High Risk: < 700 kcal/week - For Depression Depression Risk Guidelines: Depression Low Risk: Not clinically depressed. Depression Moderate Risk: Mildly depressed. Depression High Risk: Clinically depressed Motivation - Motivation to Participate On a scale of 1 to 10, how prepared are you to commit to attending program?: 10 What do you see as barriers to successfully being able to complete the program?: NONE What do you see as the benefits of succesfully completing the program? In other words, what do you hope to get out of participating in the program?: TO BE IN BETTER PHYSICAL CONDITION, STRENGHTEN MY HEART Are there issues you are dealing with that will interfere with completing the program?: NONE Do you have a spouse or signficant other, family or friends who will help support you to complete the program?: SPOUSE
[2019-04-09 12:36] VITALS: BP 138/90; PULSE 69; RESP 16; TEMP 37; O2SAT 98; BMI 27.4
--- NOTE | 2019-04-09 12:37 | CR.HP_ITS ---
CR - History & Physical - General Arrival date:: 04/09/19 Arrival time:: 11:30 Date of Referral:: 02/06/19 Date of CR Evaluation:: 04/09/19 Referring Physician: DR JACKSON - History of Present Cardiac Event Onset Date: Enter Onset Date of cardiac illnesses in Comment field below Current stable Angina Pectoris:: No Acute Myocardial Infarction within 12 months:: Yes Coronary Artery Bypass Graft:: No Heart valve replacement or repair:: No PTCA or coronary stenting:: Yes - X1 Heart or Heart-Lung Transplant:: No Heart Failure EF <35%:: No Type of Symptoms:: TYPICAL CP,ARM AND JAW PAIN - Medications Home Medications: Ambulatory Orders Medication Instructions Recorded Amlodipine [Norvasc] 10 mg PO DAILY 02/05/19 Aspirin [Aspirin, Baby] 81 mg PO DAILY@0800 02/05/19 Atenolol [Tenormin] 50 mg PO BID 02/05/19 Calcium Citrate 630 mg PO BID 02/05/19 Cholecalciferol (Vitamin D3) 2,000 unit PO DAILY 02/05/19 [Vitamin D3] Clonidine HCl [Catapres] 0.1 mg PO BID 02/05/19 Cyanocobalamin (Vitamin B-12) 2,500 mcg PO DAILY 02/05/19 [B-12] Folic Acid 0.4 mg PO DAILY@0800 02/05/19 Glucosamine HCl 1,500 mg PO DAILY 02/05/19 Magnesium Oxide 500 mg PO DAILY 02/05/19 Olmesartan/Hydrochlorothiazide 1 tab PO DAILY 02/05/19 [Benicar Hct 40-12.5 MG Tab] buPROPion XL [Wellbutrin Xl] 300 mg PO DAILY 02/05/19 cycloBENZAPRine HCl [Flexeril] 10 mg PO QHS 02/05/19 atorvastatin 80 mg tablet 80 mg PO QHS #90 tab 03/07/19 ticagrelor 90 mg tablet 90 mg PO BID #180 tab 03/07/19 - Allergies Allergies/Adverse Reactions: Allergies No Known Allergies Allergy (Verified 03/07/19 13:12) - Sleep Disorder Evaluation Hx of Sleep Apnea: No Do you snore loudly (louder than talking or can be heard through closed doors)?: No Do you often feel tired/ fatigued/ sleepy during daytime?: No Has anyone observed you stop breathing during sleep?: No History of Hypertension (for STOP score): Yes STOP Results: Negative Advanced Directives - Advanced Directives Power of Incinerator Attendant: No Living Will: No Advance Directives Information Provided: No Advance Directives on File: No - PT HAS ENCOURAGED TO BRING TO [facility] DNR Order?:: No Past Medical History - Past Medical Illness Medical History: Past Medical History (Last Updated 02/06/19 @ 11:52 by Edelmira Cloud) Atherosclerotic heart disease of [place] coronary artery without angina pectoris (Chronic) I25.10 Single vessel CAD of the RCA Non obstructive coronary arteries Successful PTCA/HUGH mid RCA with a 3.0 x 38 Promus Synergy, 95%-->0%, no dissection. HTN (hypertension) I10 - Past Surgical History Surgical History: Past Surgical History (Last Updated 02/06/19 @ 11:52 by Edelmira Cloud) Stented coronary artery (Chronic) Onset Date: 02/06/19 Z95.5 Single vessel CAD of the RCA; Non obstructive coronary arteries; Successful PTCA/HUGH mid RCA with a 3.0 x 38 Promus Synergy, 95%-->0%, no dissection. 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 Social History - Smoking History Smoking Status: Never smoker Hx Tobacco Use: No - Alcohol Use Alcohol Usage: No - Substance Abuse Hx Substance Use: No - Occupation Occupation (List type of work in comments):: Homemaker - Hobbies, Recreation, Social Activities Hobbies: Reading - MUSIC Recreational Activities: I am able to engage in a few activities Social Environment - Status Marital Status: - Current Living Arrangements Living Environment:: Spouse - Children How many children do you have?: 2 Do any of your children live nearby?: No - Safety Do you feel safe in your surroundings?: Yes - Assistance Do you need any assistance at home?: NONE Review of Systems - Review of Systems Hints: Right click = Denies ([place]ash). Left click = Reports ([place]) Review of Present Symptoms: Reports: Appetite - Normal, Appetite - Special Diet, Sleep - Normal. Denies: Shortness of Breath at Rest, Shortness of Breath with Exertion, PVD, Operative Discomfort, Angina, Wound Healing, Dizziness/Lightheadedness, Fatigue, Heart Arrhythmia/Irregularities - Pain Is Patient Pain Free?: Yes Risk Factor Assessment - Vital Signs Temperature: 98.6 F Respiratory Rate: 16 Pulse Ox: 98 Blood Pressure: 138/90 Nailbeds:: PINK - Pulse Pulse Rate: 69 Pulse Rhythm: Regular - Hypertension How long have you been treated?: MANT YEARS On medication(s)?: YES Blood Pressure Sitting - Right Arm: 138/90 - Stress Stress: Recent - OWN HEALTH AND ALSO HUSBANDS RECENT RELOCATION/JOB AND SITUATION - Blood Cholesterol/Lipids Total Cholesterol (mg/dL) Goal = less than 200 mg/dL: 183 HDL Cholesterol (mg/dL) Goal = less than 40 mg/dL: 52 LDL Cholesterol (mg/dL) Goal = less than 70 mg/dL: 113 Triglycerides (mg/dL) Goal = less than 150 mg/dL: 92 - Diabetes Nutrition Referral for Diabetes: No - Obesity Height: 5 ft 6 in Weight:: 170 lb Weight in Pounds: 170.0 lbs Body Mass Index (BMI): 27.4 Nutritional Referral for Obesity: No - Physical Inactivity Physical Inactivity: None - Risk Stratification Risk Guidelines: Lowest Risk: Risk Factor for Smoking, Risk Factor for Dyslipidemia, Risk Factor for Diabetes, Risk Factor for Obesity, Moderate Risk: Risk Factor for Sedentary Lifestyle, Risk Factor for Depression, Highest Risk: Risk Factor for Hypertension - For Smoking Smoking Risk Guidelines: Smoking Low Risk: None or quit greater than 6 months ago. Smoking Moderate Risk: Smoker or quit 6 months or less ago. Smoking High Risk: Smoker - For Dyslipidemia Dyslipidemia Risk Guidelines: Low Risk: Moderate Risk: High Risk: 15-25% fat 25.1-29% fat >/= 30% fat. <7% sat fat 7-9% sat fat >9% sat fat. <150 mg chol 150-299 mg chol >/= 300 mg chol. LDL <100 LDL 100-129 LDL >/= 130. Chol/HDL ratio <5.0 Chol/HDL ratio 5.0-6.0 Chol/HDL ratio >6.0. Triglycerides <100 Triglycerides 100- 149 Triglycerides >/= 150 - For Diabetes Mellitus Diabetes Risk Guidelines: Diabetes Low Risk: HgA1c <6.5% and/or FBG <120. Diabetes Moderate Risk: HgA1c 6.6-7.9% and/or FBG 120-180. Diabetes High Risk: HgA1c >/= 8% and/or FBG >180 - For Obesity/Overweight Obesity/Overweight Risk Guidelines: Obesity Low Risk: BMI <25.0. Obesity Moderate Risk: BMI 25-29.9. Obesity High Risk: BMI >/= 30.0 - For Hypertension Hypertension Risk Guidelines: Hypertension Low Risk: Systolic <120 and Diastolic <80. Hypertension Moderate Risk: Systolic 120-139 and Diastolic 80-89. Hypertension High Risk: Systolic >/= 140 and Diastolic >/= 90 - For Sedentary Lifestyle Sedentary Lifestyle Risk Guidelines: Sedentary Lifestyle Low Risk: >/= 1,500 kcal/week. Sedentary Lifestyle Moderate Risk: 700-1,499 kcal/week. Sedentary Lifestyle High Risk: < 700 kcal/week - For Depression Depression Risk Guidelines: Depression Low Risk: Not clinically depressed. Depression Moderate Risk: Mildly depressed. Depression High Risk: Clinically depressed Motivation - Motivation to Participate On a scale of 1 to 10, how prepared are you to commit to attending program?: 10 What do you see as barriers to successfully being able to complete the program?: NONE What do you see as the benefits of succesfully completing the program? In other words, what do you hope to get out of participating in the program?: BETTER HEART HEALTH Are there issues you are dealing with that will interfere with completing the program?: NONE Do you have a spouse or signficant other, family or friends who will help support you to complete the program?: SPOUSE
[2019-04-09 12:45] VITALS: BP 138/90; PULSE 69; RESP 16; TEMP 37; O2SAT 98; BMI 27.4
--- NOTE | 2019-04-09 12:47 | PCM.CR.ITP ---
General Information - General Information Admitting Diagnosis: PCI WITH STENT Special Needs: NONE Oxygen: NONE - Education/Goals Barriers to Learning: None Individual Counseling: Initial Assessment: High Blood Pressure, Hypertension, Sedentary Lifestyle, Stress, Family History of Heart Disease (under 65 years) Cardiac Rehabilitation Goals: 1. Maintain the individual as the primary focus of care. 2. To improve the patient's quality of life. 3. Identification of cardiac risk factors and provide cardiac risk factor management. 4. Enhance the psychosocial status of the patient. 5. Reconditioning enough to allow the patient to resume customary activities. 6. Control symptoms of cardiac disease Scale for measuring improvement of personal goals: Enter appropriate number in Comments. 2 = Unchanged. 3 = Slightly Better. 4 = Moderate Improvement. 5 = Met my Goal Personal Goals: Initial Assessment: Improve management of stress and emotions, Improve energy level, Participate in home exercise program, Improve muscle strength and endurance, Control risk factors (learn risk factor modification) Exercise - Initial Assessment - Visit Date of Eval: 04/09/19 - Stages of Change Stages of Change:: Action - Physician Prescribed Exercise Modalities: Treadmill, Biodyne, Rower, Airdyne, NuStep, SciFit Frequency (days/week): 3x/week for 12 weeks [36 sessions] Intensity: 60-80% age predicted maximum heart rate reserve - Hypertension Do any of the following apply?: Yes, Medication - NORVASC, ATENOLOL Resting Blood Pressure:: 138/90 - Intervention Home Exercise/Activity Goal:: Moderate Exercise 30 min/day x 5 days/wk - Education Goals:: Warm-up, RPE YESENIA Scale, S/S, Safe Exercise, Self-Monitoring - Exercise Program Goals Exercise Program Goals: Aerobic Activity >30 min, B/P <130/80 Nutrition - Initial Assessment - Program Goals Nutrition Program Goals: LDL <70. Total Cholesterol <200. HDL >45. Triglycerides <150. HgbA1C <7%. BMI <25 - Stages of Change Stages of Change:: Action - Lipids Total Cholesterol (mg/dL) Goal = less than 200 mg/dL: 183 HDL Cholesterol (mg/dL) Goal = less than 45 mg/dL: 52 LDL Cholesterol (mg/dL) Goal = less than 70 mg/dL: 113 Triglycerides (mg/dL) Goal = less than 150 mg/dL: 92 Lipid Medication: ATORVASTATIN - Diabetes Diabetes:: No - Weight Management Height: 5 ft 6 in Weight:: 170 lb - Intervention Referral to dietitian:: No Referral to Diabetic Clinic:: No Will attend diet classes:: Yes - CR CLASSES - Education Gave educational materials for:: Signs & symptoms of hypoglycemia, Signs & symptoms of hyperglycemia, Relate diabetes to coronary artery disease, Healthy eating Tobacco - Initial Assessment - Program Goals Tobacco Program Goals: Complete smoking cessation. Attend education classes. Improve Knowledge Test score - Stage of Change Stages of Change:: Action - Learning Barriers Learning Barriers: Ready to Learn - Family Support Do you have family support?: Yes - SPOUSE - Tobacco Use Tobacco Use: Non-smoker - Intervention Smoking Cessation Referral:: No Individual Education/Counseling:: No - Education Attended class for:: Treating Heart Disease, How The Heart Works, What it means to have Heart Disease, How Coronary Artery Disease is Diagnosed, Heart Procedures, What Heart Medications Do, Risk Factors & Modifications, Living an Active Life, Nutrition, Emotions & Heart Disease, Stress Management & Relaxation, Sleep Disorders & Heart Disease Psychosocial - Initial Assess - Target Goals Target Goals: Assess presence or absence of depression. Using a valid screening tool, maximizes coping skills. Positive support system - Stages of Change Stages of Change:: Action - Psychosocial Test Tool Used:: HANDS Depression Questionnaire Tests Completed: SF - 36 survey completed - Intervention PS - Interventions: Yes Attend Stress Management Classes - CR CLASSES, Yes Uses Stress Management Skills - CR CLASSES, No Referral to Mental Health, No Referral to [facility] Case Management, No Referral to Physician - Education Gave educational materials for:: Coping techniques, Signs & symptoms of depression, Stress management, Relaxation techniques - Patient/Program Goal Preventative Medication(s):: Aspirin, TITI inhibitor, Clopidogrel - BRILINTA, Beta jovon, Statin/lipid - Assistive Devices Assistive Devices:: None Fall Risk Assessed:: No Patient Health Questionnaire Initial Assessment 1. Little interest or pleasure in doing things: Not at all 2. Feeling down, depressed, or hopeless: Not at all 3. Trouble falling or staying asleep, or sleeping too much: More than half the days 4. Feeling tired or having little energy: Nearly every day 5. Poor appetite or overeating: Not at all 6. Feeling bad about yourself -- or that you are a failure or have let yourself or your family down: Not at all 7. Trouble concentrating on things, such as reading the newspaper or watching television: Several days 9. Thoughts that you would be better off , or of hurting yourself in some way: Not at all How difficult have these problems made it for you to do your work, take care of things at home, or get along with other people?: Somewhat difficult Total Score: 6 LEO-Q SV Test - Statements CAD is a disease of the arteries in the heart: False Examples of risk factors for heart disease: True Angina is chest pain or discomfort: True The benefits of resistance training include: True Eating more meat and dairy products: False Anti-platelet medications such as aspirin are important: True The only effective way to manage stress: False An exercise warm-up slowly increases heart rate: True Prepared, processed foods usually have high sodium: True Depression is common after a heart attack: True The statin medications lower cholesterol: True To control blood pressure, lower the amount of sodium: True If someone gets chest discomfort during walking: False Transfats are partially hydrogenated vegetable oils: True Sleep apnea that is not treated increases the risk: False To control cholesterol, one should become a vegetarian: False Someone knows if he/she is exercising at the right level: True Diabetes cannot be prevented with exercise & health eating: False Stress is a large risk for heart attack: True A diet that can help lower blood pressure is rich in: True - Total Score Total Correct Responses: 20 Self-Efficacy Initial Assessment We would like to know how confident you are in doing certain activities. Please select your confidence level for:: Select your confidence level for the following using the scale 1-10 where 1 is not at all confident and 10 is totally confident. Your score is the average of all 6 responses. Fatigue: How confident are you that you can keep the fatigue caused by your disease from interfering with the things you want to do? Select Number: 8 Physical Discomfort or Pain: How confident are you that you can keep the physical discomfort or pain of your disease from interfering with the things you want to do? Select Number: 8 Emotional Distress: How confident are you that you can keep the emotional distress caused by your disease from interfering with the things you want to do? Select Number: 10 Other Symptoms or Health Problems: How confident are you that you can keep other symptoms or health problems from interfering with the things you want to do? Select Number: 9 Different Tasks and Activities: How confident are you that you can do the different tasks and activities needed to manage your health condition so as to reduce your need to see a doctor? Select Number: 9 Medication: How confident are you that you can do things other than just taking medication to reduce how much your illness affects your everyday life? Select Number: 9 Total Score:: 8 Nutrition Survey - Nutrition Survey Instructions Scoring Instructions: Scoring is as follows: Yes = 1 points. No = 0 point. Patient score that is >/=12 is considered to be at potential nutritional risk and could benefit from a referral to a registered dietitian. - Nutrition Survey Initial Have you lost >10 lbs over the past 2 months without trying?: No Are you following a special diet at home for diabetes, low fat, or low salt?: Yes Are you interested in meeting with a dietitian for help understanding your diet?: Yes Do you eat less than 3 meals a day?: No Do you eat fatty meats (kruse, sausage, ribs, etc), fried foods, desserts, large amounts of salad dressings, margarine, butter, or cheese most days?: No Do you eat in restaurants more than 3 times a week?: No Do you season food with salt, seasoning salt, or garlic salt?: No Do you used canned, boxed, frozen meals, or soups, seasoning packets?: Yes
[2019-04-09 13:12] VITALS: BP 138/90
== END | disposition home or self-care (01) ==
LOC: CR 11:37
PROVIDERS: Family Provider Family Medicine; PCP Family Medicine; Referring Provider Internal Medicine Cardiovascular Disease; Visit Provider Internal Medicine Cardiovascular Disease
DX: I25.10 Atherosclerotic heart disease of native coronary artery without angina pectoris (principal); I10 Essential (primary) hypertension; Z95.5 Presence of coronary angioplasty implant and graft; Z79.82 Long term (current) use of aspirin; Z79.899 Other long term (current) drug therapy

== ENCOUNTER 2019-05-06 13:00 | Outpatient (RCR) | payer BC, SELFPAY ==
[2019-02-06 10:02] VITALS: BMI 28.0
[2019-04-09 12:45] VITALS: BMI 27.4
== END 2019-05-06 23:59 ==
LOC: CR 13:00
PROVIDERS: Family Provider Family Medicine; PCP Family Medicine; Referring Provider Internal Medicine Cardiovascular Disease; Visit Provider Internal Medicine Cardiovascular Disease
DX: I25.10 Atherosclerotic heart disease of native coronary artery without angina pectoris (principal); I25.2 Old myocardial infarction; Z95.5 Presence of coronary angioplasty implant and graft
CPT/HCPCS: 93798

== ENCOUNTER 2019-06-05 13:00 | Outpatient (RCR) | payer BC, SELFPAY ==
[2019-02-06 10:02] VITALS: BMI 28.0
[2019-04-09 12:45] VITALS: BMI 27.4
--- NOTE | 2019-05-08 13:49 | PCM.CR.ITP ---
Exercise - 30-day Assessment - Visit Date of Eval: 05/08/19 Session #:: 11 - Stages of Change Stages of Change:: Action - Physician Prescribed Exercise Modalities: Treadmill, Airdyne, NuStep Frequency (days/week): 3 Duration (Minutes):: 30-45 Intensity: 60-80% age predicted maximum heart rate reserve METs - Progression: 0.5-1.0 MET, RPE 11-14 WEEK: 5.0 Target Heart Rate:: 103-136 w/max hr 121 - Hypertension Resting Blood Pressure:: 112/60 Peak Exercise Blood Pressure:: 122/90 Medication Changes:: No - Intervention Home Exercise/Activity Goal:: Moderate Exercise 30 min/day x 5 days/wk - Education Goals:: Warm-up, RPE YESENIA Scale, S/S, Safe Exercise, Self-Monitoring - Exercise Program Goals Exercise Program Goals: Aerobic Activity >30 min Nutrition - 30-Day Assessment - Program Goals Nutrition Program Goals: LDL <70. Total Cholesterol <200. HDL >45. Triglycerides <150. HgbA1C <7%. BMI <25 - Visit Date of Eval: 05/08/19 - Stages of Change Stages of Change:: Action - Lipids Has the patient seen the dietitian?: No - Diabetes Diabetes:: No Insulin: No Non-Insulin Dependent?: No - Weight Management Weight:: 171 lb 8 oz - down 2 pounds - Intervention Referral to dietitian:: No Referral to Diabetic Clinic:: No Will attend diet classes:: Yes - Education Attended class for:: Healthy eating Tobacco - Initial Assessment - Program Goals Tobacco Program Goals: Complete smoking cessation. Attend education classes. Improve Knowledge Test score - Learning Barriers Learning Barriers: Ready to Learn Tobacco - 30-Day Assessment - Program Goals Tobacco Program Goals: Complete smoking cessation. Attend education classes. Improve Knowledge Test score - Stage of Change Stages of Change:: Action - Learning Barriers Learning Barriers: Participates in education - Family Support Do you have family support?: Yes - Tobacco Use Tobacco Use: Non-smoker Do you use smokeless tobacco?: No - Intervention Smoking Cessation Referral:: No Individual Education/Counseling:: No Education Schedule Given:: Yes - Education Attended class for:: Heart Procedures, What Heart Medications Do, Risk Factors & Modifications, Living an Active Life, Nutrition Psychosocial - Initial Assess - Target Goals Target Goals: Assess presence or absence of depression. Using a valid screening tool, maximizes coping skills. Positive support system - Psychosocial Test Tool Used:: HANDS Depression Questionnaire - Assistive Devices Fall Risk Assessed:: No Psychosocial - 30-Day Assess - Target Goals Target Goals: Assess presence or absence of depression. Using a valid screening tool, maximizes coping skills. Positive support system - Stages of Change Stages of Change:: Action - Psychosocial Test Tool Used:: HANDS Depression Questionnaire - Intervention PS - Interventions: Yes Attend Stress Management Classes, No Referral to Mental Health, No Referral to [facility] Case Management, No Referral to Physician, No Uses Stress Management Skills - Education Attended classes for:: Coping techniques, Signs & symptoms of depression, Stress management, Relaxation techniques - Patient/Program Goal Preventative Medication(s):: Aspirin, TITI inhibitor, Clopidogrel, Beta jovon, Statin/lipid - Assistive Devices Assistive Devices:: None Fall Risk Assessed:: Yes Patient Health Questionnaire 30-Day Re-eval Assessment 1. Little interest or pleasure in doing things: Not at all 2. Feeling down, depressed, or hopeless: Not at all 3. Trouble falling or staying asleep, or sleeping too much: Not at all 4. Feeling tired or having little energy: Not at all 5. Poor appetite or overeating: Not at all 6. Feeling bad about yourself -- or that you are a failure or have let yourself or your family down: Not at all 7. Trouble concentrating on things, such as reading the newspaper or watching television: Not at all 8. Moving or speaking so slowly that other people could have noticed. Or the opposite - being so fidgety or restless that you have been moving around a lot more than usual: Not at all 9. Thoughts that you would be better off , or of hurting yourself in some way: Not at all How difficult have these problems made it for you to do your work, take care of things at home, or get along with other people?: Not difficult at all Total Score: 0 Self-Efficacy 30-Day Re-eval Assessment We would like to know how confident you are in doing certain activities. Please select your confidence level for:: Select your confidence level for the following using the scale 1-10 where 1 is not at all confident and 10 is totally confident. Your score is the average of all 6 responses. Fatigue: How confident are you that you can keep the fatigue caused by your disease from interfering with the things you want to do? Select Number: 9 Physical Discomfort or Pain: How confident are you that you can keep the physical discomfort or pain of your disease from interfering with the things you want to do? Select Number: 10 Emotional Distress: How confident are you that you can keep the emotional distress caused by your disease from interfering with the things you want to do? Select Number: 9 Other Symptoms or Health Problems: How confident are you that you can keep other symptoms or health problems from interfering with the things you want to do? Select Number: 9 Different Tasks and Activities: How confident are you that you can do the different tasks and activities needed to manage your health condition so as to reduce your need to see a doctor? Select Number: 9 Medication: How confident are you that you can do things other than just taking medication to reduce how much your illness affects your everyday life? Select Number: 10 Total Score:: 9
[2019-05-08 13:52] VITALS: BP 112/60; BP 122/90
== END 2019-06-06 23:59 ==
LOC: CR 13:00
PROVIDERS: Family Provider Family Medicine; PCP Family Medicine; Referring Provider Internal Medicine Cardiovascular Disease; Visit Provider Internal Medicine Cardiovascular Disease
DX: I25.10 Atherosclerotic heart disease of native coronary artery without angina pectoris (principal); I25.2 Old myocardial infarction; Z95.5 Presence of coronary angioplasty implant and graft
CPT/HCPCS: 93798

== ENCOUNTER → 2019-06-12 09:53 | Outpatient (CLI) | payer BC, SELFPAY ==
[2019-02-06 10:02] VITALS: BMI 28.0
[2019-03-07 13:14] VITALS: BMI 27.4
[2019-04-09 12:45] VITALS: BMI 27.4
--- NOTE | 2019-06-12 09:55 | ECHOCS_ITS ---
Version 2 Reason For Study: CAD/ASHD Procedure This was a 2D Doppler, Color Flow transthoracic echocardiogram. Contrast injection was performed. Exam performed in department. Left Ventricle Normal size and thickness. The estimated ejection fraction is 65 %. Stage 1 diastolic dysfunction. No regional wall motion abnormalities noted. Right Ventricle Normal size and thickness. Normal systolic function. Atria Normal left atrium. Normal right atrium. Normal atrial septum. Mitral Valve The mitral valve is structurally normal. No prolapse or stenosis seen. Mild mitral annular calcification extending into the posterior leaflet. Tricuspid Valve Normal tricuspid valve. Trivial tricuspid valve insufficiency. Right ventricular systolic pressure estimated to be 26 mmHg. Aortic Valve Normal aortic valve. Trisinus/trileaflet aortic valve. Pulmonic Valve Normal pulmonic valve. Trivial pulmonic valve insufficiency. Great Vessels Normal aortic root. Normal arch. Normal inferior vena cava. Inferior vena cava collapse with sniff. Pericardium/Pleural No pericardial effusion. Medication Diluted definity 3ml given slow IV push to enhance endocardial definition. MMode/2D Measurements & Calculations LVIDd: 4.0 cm IVSd: 1.0 cm Ao root diam: 3.1 cm LVIDs: 2.7 cm LVPWd: 0.74 cm RVDd: 3.6 cm FS: 31.8 % LAV(MOD-bp): 36.6 ml LVAd ap4: 28.6 cm2 SV(MOD-sp4): 55.3 ml LAV(MOD-bp) Indexed: 19.7 ml/m2 EDV(MOD-sp4): 86.4 ml LAV(MOD-sp2): 42.9 ml EDV(sp4-el): 91.3 ml LAV(MOD-sp4): 31.0 ml LVAs ap4: 15.1 cm2 ESV(MOD-sp4): 31.1 ml ESV(sp4-el): 32.3 ml EF(MOD-sp4): 64.0 % EF(sp4-el): 64.6 % SV(sp4-el): 59.0 ml LA A4 area: 13.5 cm2 LA dimension(2D): 3.1 cm RA A4 area: 13.2 cm2 Doppler Measurements & Calculations MV E max abel: 56.6 cm/sec Lat Peak E' Abel: 6.3 cm/sec Med Peak E' Abel: 4.3 cm/sec MV A max abel: 70.2 cm/sec E/E' lat: 9.0 E/E' med: 13.1 MV E/A: 0.81 Ao V2 max: 127.7 cm/sec LV V1 max: 96.1 cm/sec PA V2 max: 71.6 cm/sec Ao max P.5 mmHg LV V1 max P.7 mmHg Ao V2 mean: 87.9 cm/sec Ao mean P.5 mmHg Ao V2 VTI: 26.2 cm TR max abel: 222.1 cm/sec TR max P.7 mmHg Interpretation Summary The estimated ejection fraction is 65 %. Stage 1 diastolic dysfunction. Trivial tricuspid valve insufficiency. Right ventricular systolic pressure estimated to be 26 mmHg. Compared to echo report dated 02/06/2019, LV function has normalized. The study was technically difficult. Contrast injection was performed. Ordering Physician: Jose Carlos Campos Referring Physician: Beau Morales Performed By: Starla Campos, ELVIS, RVT
== END ==
PROVIDERS: Family Provider Family Medicine; PCP Family Medicine; Referring Provider Nurse Practitioner Family; Visit Provider Nurse Practitioner Family
DX: I25.10 Atherosclerotic heart disease of native coronary artery without angina pectoris (principal); I25.2 Old myocardial infarction
CPT/HCPCS: 93306; Q9957; A4216; C8929

== ENCOUNTER 2019-07-03 13:00 | Outpatient (RCR) | payer BC, SELFPAY ==
[2019-02-06 10:02] VITALS: BMI 28.0
[2019-04-09 12:45] VITALS: BMI 27.4
[2019-06-07 01:06] VITALS: BP 112/60; BP 122/90
--- NOTE | 2019-06-11 06:48 | PCM.CR.ITP ---
Exercise - 60-Day Assessment - Visit Date of Eval: 06/11/19 Session #:: 24 - PATIENT HAS MISSED ONLY 1 SESSION. - Stages of Change Stages of Change:: Action - Physician Prescribed Exercise Modalities: Treadmill, Rower, Airdyne, NuStep Frequency (days/week): 3 Duration (Minutes):: 30-45 Intensity: 60-80% age predicted maximum heart rate reserve METs - Progression: 0.5-1.0 MET, RPE 11-14 WEEK: 5 RPE 11-12 NO INCREASE THIS MONTH Target Heart Rate:: 103-136 W/ MAX HR 112 - Hypertension Resting Blood Pressure:: 132/82 Peak Exercise Blood Pressure:: 138/90 Medication Changes:: No - Intervention Home Exercise/Activity Goal:: Moderate Exercise 30 min/day x 5 days/wk - Education Goals:: Warm-up, RPE YESENIA Scale, S/S, Safe Exercise, Self-Monitoring - Exercise Program Goals Exercise Program Goals: Aerobic Activity >30 min Nutrition - 60-Day Assessment - Program Goals Nutrition Program Goals: LDL <70. Total Cholesterol <200. HDL >45. Triglycerides <150. HgbA1C <7%. BMI <25 - Visit Date of Eval: 06/11/19 - Stages of Change Stages of Change:: Action - Lipids Has the patient seen the dietitian?: No - Diabetes Diabetes:: No Insulin: No Non-Insulin Dependent?: No - Weight Management Weight:: 173 lb - INCREASE 2# THIS 30-DAYS - Intervention Referral to dietitian:: No Referral to Diabetic Clinic:: No Will attend diet classes:: Yes - Education Attended class for:: Healthy eating Tobacco - Initial Assessment - Program Goals Tobacco Program Goals: Complete smoking cessation. Attend education classes. Improve Knowledge Test score - Learning Barriers Learning Barriers: Ready to Learn Tobacco - 60-Day Assessment - Program Goals Tobacco Program Goals: Complete smoking cessation. Attend education classes. Improve Knowledge Test score - Learning Barriers Learning Barriers: Participates in education, Change in behavior - Family Support Do you have family support?: Yes - Tobacco Use Tobacco Use: Non-smoker Do you use smokeless tobacco?: No - Intervention Smoking Cessation Referral:: No Individual Education/Counseling:: No Education Schedule Given:: Yes - Education Attended class for:: Heart Procedures, What Heart Medications Do, Risk Factors & Modifications, Living an Active Life, Nutrition, Emotions & Heart Disease, Stress Management & Relaxation, Sleep Disorders & Heart Disease Psychosocial - Initial Assess - Target Goals Target Goals: Assess presence or absence of depression. Using a valid screening tool, maximizes coping skills. Positive support system - Psychosocial Test Tool Used:: HANDS Depression Questionnaire - Assistive Devices Fall Risk Assessed:: No Psychosocial - 60-Day Assess - Target Goals Target Goals: Assess presence or absence of depression. Using a valid screening tool, maximizes coping skills. Positive support system - Stages of Change Stages of Change:: Action - Psychosocial Test Tool Used:: HANDS Depression Questionnaire - Intervention PS - Interventions: Yes Attend Stress Management Classes, Yes Uses Stress Management Skills, No Referral to Mental Health, No Referral to [facility] Case Management, No Referral to Physician - Education Attended classes for:: Coping techniques, Signs & symptoms of depression, Stress management, Relaxation techniques - Patient/Program Goal Preventative Medication(s):: Aspirin, TITI inhibitor, Clopidogrel, Beta jovon, Statin/lipid - PATIENT REPORTS COMPLIANCE WITH MEDICATIONS - Assistive Devices Assistive Devices:: None Fall Risk Assessed:: Yes Patient Health Questionnaire 60-Day Re-eval Assessment 1. Little interest or pleasure in doing things: Not at all 2. Feeling down, depressed, or hopeless: Not at all 3. Trouble falling or staying asleep, or sleeping too much: Not at all 4. Feeling tired or having little energy: Not at all 5. Poor appetite or overeating: Not at all 6. Feeling bad about yourself -- or that you are a failure or have let yourself or your family down: Not at all 7. Trouble concentrating on things, such as reading the newspaper or watching television: Not at all 8. Moving or speaking so slowly that other people could have noticed. Or the opposite - being so fidgety or restless that you have been moving around a lot more than usual: Not at all 9. Thoughts that you would be better off , or of hurting yourself in some way: Not at all How difficult have these problems made it for you to do your work, take care of things at home, or get along with other people?: Not difficult at all Total Score: 0 Self-Efficacy 60-Day Re-eval Assessment We would like to know how confident you are in doing certain activities. Please select your confidence level for:: Select your confidence level for the following using the scale 1-10 where 1 is not at all confident and 10 is totally confident. Your score is the average of all 6 responses. Fatigue: How confident are you that you can keep the fatigue caused by your disease from interfering with the things you want to do? Select Number: 10 Physical Discomfort or Pain: How confident are you that you can keep the physical discomfort or pain of your disease from interfering with the things you want to do? Select Number: 10 Emotional Distress: How confident are you that you can keep the emotional distress caused by your disease from interfering with the things you want to do? Select Number: 10 Other Symptoms or Health Problems: How confident are you that you can keep other symptoms or health problems from interfering with the things you want to do? Select Number: 10 Different Tasks and Activities: How confident are you that you can do the different tasks and activities needed to manage your health condition so as to reduce your need to see a doctor? Select Number: 10 Medication: How confident are you that you can do things other than just taking medication to reduce how much your illness affects your everyday life? Select Number: 10 Total Score:: 10
[2019-06-11 06:52] VITALS: BP 132/82; BP 138/90
== END 2019-07-06 23:59 ==
LOC: CR 13:00
PROVIDERS: Family Provider Family Medicine; PCP Family Medicine; Referring Provider Internal Medicine Cardiovascular Disease; Visit Provider Internal Medicine Cardiovascular Disease
DX: I25.10 Atherosclerotic heart disease of native coronary artery without angina pectoris (principal); I25.2 Old myocardial infarction; Z95.5 Presence of coronary angioplasty implant and graft
CPT/HCPCS: 93798

== ENCOUNTER 2019-07-10 13:00 | Outpatient (RCR) | payer BC, SELFPAY ==
[2019-02-06 10:02] VITALS: BMI 28.0
[2019-06-24 10:48] VITALS: BMI 26.9
[2019-07-07 00:50] VITALS: BP 132/82; BP 138/90
--- NOTE | 2019-07-10 06:40 | PCM.CR.ITP ---
General Information - Education/Goals Cardiac Rehabilitation Goals: 1. Maintain the individual as the primary focus of care. 2. To improve the patient's quality of life. 3. Identification of cardiac risk factors and provide cardiac risk factor management. 4. Enhance the psychosocial status of the patient. 5. Reconditioning enough to allow the patient to resume customary activities. 6. Control symptoms of cardiac disease Scale for measuring improvement of personal goals: Enter appropriate number in Comments. 2 = Unchanged. 3 = Slightly Better. 4 = Moderate Improvement. 5 = Met my Goal Personal Goals: Discharge Reassessment: Improve management of stress and emotions - learned alot in the education classes., Improve energy level, Participate in home exercise program, Get back to work, or to resume activities faster, Improve knowledge of cardiac disease, Improve muscle strength and endurance, Improve diet and eating habits (eat healthier), Control risk factors (learn risk factor modification) Exercise - Final/Discharge - Visit Date of Eval: 07/10/19 Session #:: 35 - Started on 04/15/2019, graduated on 07/10/2019. - Stages of Change Stages of Change:: Action - Physician Prescribed Exercise Modalities: Treadmill, Rower, Airdyne, NuStep Frequency (days/week): 3 Duration (Minutes):: 30-45 Intensity: 60-80% age predicted maximum heart rate reserve METs - Progression: 0.5-1.0 MET, RPE 11-14 WEEK: 6 started at 3.0 MET! Target Heart Rate:: 103-136 max HR 129 RPE 12 - Hypertension Do any of the following apply?: Yes, Medication, Diet Resting Blood Pressure:: 108/70 Peak Exercise Blood Pressure:: 152/90 - Intervention Home Exercise/Activity Goal:: Moderate Exercise 30 min/day x 5 days/wk - Education Goal Progress: Goal Met - Exercise Program Goals Exercise Program Goals: Aerobic Activity >30 min Nutrition - Final Assessment - Program Goals Nutrition Program Goals: LDL <70. Total Cholesterol <200. HDL >45. Triglycerides <150. HgbA1C <7%. BMI <25 - Visit Date of Eval: 07/10/19 - Stages of Change Stages of Change:: Action - Diabetes Diabetes:: No Insulin: No Non-Insulin Dependent?: No - Weight Management Height: 5 ft 6 in Weight:: 167 lb 8 oz - Down from 173 this 30-days! Great Job! - Intervention Referral to dietitian:: No Referral to Diabetic Clinic:: No Will attend diet classes:: Yes - Education Education Goal Reached?: Yes Tobacco - Initial Assessment - Program Goals Tobacco Program Goals: Complete smoking cessation. Attend education classes. Improve Knowledge Test score - Learning Barriers Learning Barriers: Ready to Learn Tobacco - Final Assessment - Program Goals Tobacco Program Goals: Complete smoking cessation. Attend education classes. Improve Knowledge Test score - Stage of Change Stages of Change:: Action - Family Support Do you have family support?: Yes - Tobacco Use Tobacco Use: Non-smoker Do you use smokeless tobacco?: No - Intervention Smoking Cessation Referral:: No Individual Education/Counseling:: No Education Schedule Given:: Yes - Education Education Goal Reached?: Yes Psychosocial - Initial Assess - Target Goals Target Goals: Assess presence or absence of depression. Using a valid screening tool, maximizes coping skills. Positive support system - Psychosocial Test Tool Used:: HANDS Depression Questionnaire - Assistive Devices Fall Risk Assessed:: Yes Psychosocial - Final Assessmen - Target Goals Target Goals: Assess presence or absence of depression. Using a valid screening tool, maximizes coping skills. Positive support system - Stages of Change Stages of Change:: Action - Psychosocial Test Tool Used:: HANDS Depression Questionnaire - Intervention PS - Interventions: Yes Attend Stress Management Classes, Yes Uses Stress Management Skills, No Referral to Mental Health, No Referral to [facility] Case Management, No Referral to Physician - Education Education Goal Reached?: Yes - Patient/Program Goal Preventative Medication(s):: Aspirin, TITI inhibitor, Clopidogrel, Beta jovon, Statin/lipid - Patient aware of medication safety and takes medications as prescribed. - Assistive Devices Assistive Devices:: None Fall Risk Assessed:: Yes Patient Health Questionnaire Discharge Assessment 1. Little interest or pleasure in doing things: Not at all 2. Feeling down, depressed, or hopeless: Not at all 3. Trouble falling or staying asleep, or sleeping too much: Not at all 4. Feeling tired or having little energy: Not at all 5. Poor appetite or overeating: Not at all 6. Feeling bad about yourself -- or that you are a failure or have let yourself or your family down: Not at all 7. Trouble concentrating on things, such as reading the newspaper or watching television: Not at all 8. Moving or speaking so slowly that other people could have noticed. Or the opposite - being so fidgety or restless that you have been moving around a lot more than usual: Not at all 9. Thoughts that you would be better off , or of hurting yourself in some way: Not at all Total Score: 0 LEO-Q SV Test - Statements CAD is a disease of the arteries in the heart: False Examples of risk factors for heart disease: True Angina is chest pain or discomfort: True The benefits of resistance training include: True Eating more meat and dairy products: False Anti-platelet medications such as aspirin are important: True The only effective way to manage stress: False An exercise warm-up slowly increases heart rate: True Prepared, processed foods usually have high sodium: True Depression is common after a heart attack: True The statin medications lower cholesterol: True To control blood pressure, lower the amount of sodium: True If someone gets chest discomfort during walking: False Transfats are partially hydrogenated vegetable oils: True Sleep apnea that is not treated increases the risk: False To control cholesterol, one should become a vegetarian: False Someone knows if he/she is exercising at the right level: True Diabetes cannot be prevented with exercise & health eating: False Stress is a large risk for heart attack: True A diet that can help lower blood pressure is rich in: True - Total Score Total Correct Responses: 20 Self-Efficacy Discharge Assessment We would like to know how confident you are in doing certain activities. Please select your confidence level for:: Select your confidence level for the following using the scale 1-10 where 1 is not at all confident and 10 is totally confident. Your score is the average of all 6 responses. Fatigue: How confident are you that you can keep the fatigue caused by your disease from interfering with the things you want to do? Select Number: 10 Physical Discomfort or Pain: How confident are you that you can keep the physical discomfort or pain of your disease from interfering with the things you want to do? Select Number: 10 Emotional Distress: How confident are you that you can keep the emotional distress caused by your disease from interfering with the things you want to do? Select Number: 10 Other Symptoms or Health Problems: How confident are you that you can keep other symptoms or health problems from interfering with the things you want to do? Select Number: 10 Different Tasks and Activities: How confident are you that you can do the different tasks and activities needed to manage your health condition so as to reduce your need to see a doctor? Select Number: 10 Medication: How confident are you that you can do things other than just taking medication to reduce how much your illness affects your everyday life? Select Number: 10 Total Score:: 10 Nutrition Survey - Nutrition Survey Instructions Scoring Instructions: Scoring is as follows: Yes = 1 points. No = 0 point. Patient score that is >/=12 is considered to be at potential nutritional risk and could benefit from a referral to a registered dietitian. - Nutrition Survey Discharge Have you lost >10 lbs over the past 2 months without trying?: No Are you following a special diet at home for diabetes, low fat, or low salt?: Yes Are you interested in meeting with a dietitian for help understanding your diet?: No Do you eat less than 3 meals a day?: No Do you eat fatty meats (kruse, sausage, ribs, etc), fried foods, desserts, large amounts of salad dressings, margarine, butter, or cheese most days?: No Do you have food allergies? [Enter types in comment field]: No Do you eat in restaurants more than 3 times a week?: No Do you season food with salt, seasoning salt, or garlic salt?: No Do you used canned, boxed, frozen meals, or soups, seasoning packets?: No Total Score:: 1
[2019-07-10 06:45] VITALS: BP 108/70; BP 152/90
== END 2019-08-06 23:59 ==
LOC: CR 13:00
PROVIDERS: Family Provider Family Medicine; PCP Family Medicine; Referring Provider Internal Medicine Cardiovascular Disease; Visit Provider Internal Medicine Cardiovascular Disease
DX: I25.10 Atherosclerotic heart disease of native coronary artery without angina pectoris (principal); I25.2 Old myocardial infarction; Z95.5 Presence of coronary angioplasty implant and graft
CPT/HCPCS: 93798

== ENCOUNTER → 2019-07-12 07:37 | Outpatient (CLI) | payer BC, SELFPAY ==
[2019-02-06 10:02] VITALS: BMI 28.0
[2019-06-24 10:48] VITALS: BMI 26.9
[2019-07-12 09:31] LABS: AST(SGOT) 34 U/L (15-37); Alanine Aminotransfer ALT/SGPT 56 U/L (13-56); Albumin, Serum 4.1 g/dL (3.2-5.0); Alkaline Phosphatase 150 U/L (45-117); Anion Gap 4 (5-15); BUN 17 mg/dL (7-18); BUN/Creat Ratio 23.1 RATIO (10-20); Bilirubin, Direct 0.13 mg/dL (0.00-0.30); Calcium,Total 9.4 mg/dL (8.5-10.1); Chloride 104 mmol/L (98-107); Cholesterol 120 mg/dL (200); Creatinine, Serum 0.74 mg/dL (0.55-1.02); EST Glomerular Filtration Rate 85 mL/min (>60); Est Glom Filt Rate - Afr Amer 103 mL/min (>60); Globulin 4.2 g/dL (2.2-4.2); Glucose 102 mg/dL (74-106); High Density Lipoprotein 52 mg/dL; Protein, Total 8.3 g/dL (6.4-8.2); Sodium Level 139 mmol/L (136-145); Triglycerides 91 mg/dL; Very Low Density Lipoprotein 18 mg/dL (5-40)
== END ==
PROVIDERS: Family Provider Family Medicine; PCP Family Medicine; Referring Provider Internal Medicine Cardiovascular Disease; Visit Provider Internal Medicine Cardiovascular Disease
DX: I10 Essential (primary) hypertension (principal); Z86.39 Personal history of other endocrine, nutritional and metabolic disease; E78.5 Hyperlipidemia, unspecified; I25.10 Atherosclerotic heart disease of native coronary artery without angina pectoris
CPT/HCPCS: 36415; 80048; 80061; 80076

== ENCOUNTER → 2020-01-16 | Outpatient (CLI) | payer BC, SELFPAY ==
[2019-02-06 10:02] VITALS: BMI 28.0
[2020-01-09 12:11] VITALS: BMI 25.7
[2020-01-16 09:46] LABS: AST(SGOT) 41 U/L (15-37); Alanine Aminotransfer ALT/SGPT 67 U/L (13-56); Albumin, Serum 3.8 g/dL (3.2-5.0); Alkaline Phosphatase 133 U/L (45-117); Bilirubin, Direct 0.16 mg/dL (0.00-0.30); Cholesterol 118 mg/dL (200); Globulin 3.9 g/dL (2.2-4.2); High Density Lipoprotein 52 mg/dL; Protein, Total 7.7 g/dL (6.4-8.2); Triglycerides 83 mg/dL; Very Low Density Lipoprotein 17 mg/dL (5-40)
== END | disposition home or self-care (01) ==
LOC: LAB 08:36
PROVIDERS: PCP Family Medicine; Referring Provider Internal Medicine Cardiovascular Disease; Visit Provider Internal Medicine Cardiovascular Disease
DX: E78.5 Hyperlipidemia, unspecified (principal)
CPT/HCPCS: 36415; 80061; 80076

== ENCOUNTER → 2020-01-30 09:32 | Outpatient (CLI) | payer BC, SELFPAY ==
[2019-02-06 10:02] VITALS: BMI 28.0
[2020-01-09 12:11] VITALS: BMI 25.7
--- NOTE | 2020-01-30 09:37 | STEWCON_ITS ---
Reason For Study: Pre-Operative Stress Results Protocol: Dagoberto Protocol WITH DEFINITY Maximum Predicted HR: 158 bpm Target HR: 134 bpm % Maximum Predicted HR: 87 % DurationHeart Rate Stage (mm:ss) (bpm) BP Comment Baseline 84 142/86No Chest Pain; 3 ML Diluted Definity Dagoberto Protocol Stage I 3:00 100 148/80No Chest Pain Dagoberto Protocol Stage II 3:00 120 154/82No Chest Pain Dagoberto Protocol Stage III 3:00 137 150/80No Chest Pain Recovery 98 124/88No Chest Pain Stress Duration: 9:00 mm:ss Maximum Stress HR: 137 bpm METS: 10 Baseline Echocardiogram Findings The estimated ejection fraction is 65 %. Stress Echo Wall motion Data Resting WM Intermediate WM Stress WM Resting Wall Motion Wall Motion Stress No regional wall motion No regional wall motion abnormalities noted. abnormalities noted. EKG Data The baseline ECG displays normal sinus rhythm. The patient exercised according to the regular Dagoberto protocol for a total duration of 9:00. The maximum heart rate attained was 139 beats per minute. This was 87% of maximum predicted heart rate. The patient exercised into stage 4 of the Dagoberto protocol. During stress, there were no ST or T wave changes noted to suggest ischemia. No arrhythmias noted. No clinical angina was noted. Interpretation Summary The estimated ejection fraction is 65 %. Normal, adequate, treadmill echocardiogram. Negative for ischemia by EKG and echocardiographic criteria. No anginal symptoms noted. No arrhythmias noted. Appropriate blood pressure response to exercise. Average exercise capacity for age. Test terminated with attainment of target heart rate. Final LVEF is 75%. Patient tolerated procedure well. No complications. The study was technically difficult. Contrast injection was performed. Ordering Physician: Enzo Amador Referring Physician: Beau Morales Performed By: Sadie Edward, RDCS, RVT
== END ==
PROVIDERS: PCP Family Medicine; Referring Provider Internal Medicine Cardiovascular Disease; Visit Provider Internal Medicine Cardiovascular Disease
DX: Z01.818 Encounter for other preprocedural examination (principal); I25.10 Atherosclerotic heart disease of native coronary artery without angina pectoris; I10 Essential (primary) hypertension; E78.5 Hyperlipidemia, unspecified
CPT/HCPCS: 93017; 93350; Q9957; A4216; C8928

== ENCOUNTER 2020-06-22 09:52 | Day surgery (SDC) | payer BC, SELFPAY ==
[2019-02-06 10:02] VITALS: BMI 28.0
[2020-06-03 09:23] VITALS: BMI 25.2
--- NOTE | 2020-06-22 05:10 | HP_ITS ---
Intake Vital Signs 06/03/20 Height 5 ft 6 in 06/03/20 Weight: 156 lb 06/03/20 BMI 25.2 06/03/20 BP 139/89 H 06/03/20 Blood Pressure Location Rt brachial 06/03/20 Position Sitting 06/03/20 Respiration 16 06/03/20 Pulse 72 06/03/20 Pulse Source Monitor 06/03/20 Temp 97.5 F L 06/03/20 Temp Source Temporal 06/03/20 Pulse Oximetry (%) 100 06/03/20 Oxygen Delivery Method room air Intake Visit Reasons: C-Scope Chief Complaint: CP Allergies No Known Allergies Allergy (Verified 06/03/20 09:24) [facility] Medical History Hyperlipidemia, unspecified (Chronic) Essential (primary) hypertension (Chronic) Atherosclerotic heart disease of [place] coronary artery without angina pectoris (Chronic) STEMI (ST elevation myocardial infarction) (Acute 02/06/19) HTN (hypertension) (Chronic) Surgical History Stented coronary artery (Chronic 02/06/19) Family History Father , age 83 from CVA and renal failure CVA (cerebral vascular accident) Kidney disease CAD (coronary artery disease) Myocardial infarction S/P CABG (coronary artery bypass graft) History of aortic valve replacement Mother , age 85 of CVA, C Diff S/P CABG (coronary artery bypass graft) CABG X 1 CAD (coronary artery disease) Atrial fibrillation Colon cancer CVA (cerebral vascular accident) Social History (Updated 06/03/20 @ 09:[address] Enzo Marsh MD) Smoking Status: Never smoker second hand exposure: No alcohol intake: never substance use type: does not use caffeine: Yes what type of physical activity do you participate in: none frequency: does not exercise seatbelt use: always HPI HPI HPI: RACHAEL GARCIA, is a 60 F who presents to the office today for HPI HPI Surgical H&P: Yes HPI: RACHAEL GARCIA, is a 60 F who presents to the office today for Evaluation for colonoscopy. Patient had her last colonoscopy done 5 years ago in [place] she was noted to have biopsies of her ileocecal valve which showed some active colitis reactive hyperplastic mucosal changes. She has not had any problems with her bowels she has not been noticing any blood or abdominal pain. She does have a family history of mother who had colon cancer. Exam Const General: no acute distress, well developed, well hydrated Orientation: oriented to person, oriented to place, oriented to time [facility] Head: normocephalic, atraumatic Ears: external ears normal Mouth: moist mucous membranes Eyes Sclera: sclerae normal Pupils: normal by confrontation Neck Neck: no lymphadenopathy noted Neck mass: No Thyroid: thyroid normal, symmetrical Chest Chest palpation & inspection: normal inspection of the chest Resp Effort & Inspection: normal respiratory effort Auscultation: clear to auscultation bilaterally Percussion: percussion normal Cardio Rate: regular rate Rhythm: regular rhythm GI Palpation: soft, no hepatosplenomegaly, no masses, nontender Rectal Exam: other Other: Rectal exam deferred. Extrem General: normal to inspection, no clubbing, cyanosis or edema Assessment & Plan Problems 1. Family history of colon cancer in mother Z80.0 Plan I have discussed the above with the patient. I have offered the patient colonoscopy for evaluation. I have explained the risks/benefits of the procedure and described the procedure. I have discussed the risks with the patient, including but not limited to: infection, bleeding, perforation of the GI tract requiring emergency surgery, inability to complete the procedure, injury to any internal organs, complications of anesthesia, etc. - the patient understands and agrees to proceed. I have answered all the patient's questions to the patient's satisfaction and the patient has no further questions. The patient has been given instructions for the colon cleansing preparation. She will be off of her Brilinta for 5 days prior to the procedure she will remain on her baby aspirin. Coding Level of Care Code Off vis,new,level 3 Diagnoses Family history of colon cancer in mother Z80.0 COVID (Procedure Consent) Procedure Criteria Procedure Criteria: Yes Elective The surgeon/proceduralist and patient have discussed in detail the risk of exposure to and/or potential harm posed by the COVID-19 virus with having a surgery/procedure at this time versus the risk of? delaying the surgery/procedure. It is not possible to know either the risk of delaying the surgery or procedure or chance of getting an infection with perfect accuracy, but a joint decision was made between the patient and the surgeon/proceduralist ?to proceed at this time with the scheduled surgery/procedure as indicated on the consent form.
[2020-06-22 10:24] VITALS: BP 134/83; PULSE 73; RESP 14; TEMP 36.4; O2SAT 100; BMI 25.0
--- NOTE | 2020-06-22 10:31 | PCM.HP.BLA ---
History and Physical Date of Admission: 06/22/20 [facility] Medical Records Department [address] [place] [address] History and Physical 06/22/20 0510 MR#: [id number] Acct: [id number] Name: RACHAEL GARCIA Rep #: [id number] : 1960 60 From: Enzo Marsh MD PCP: Dr. Beau Morales MD [place] [facility] [place] Intake Vital Signs 06/03/20 Height 5 ft 6 in 06/03/20 Weight: 156 lb 06/03/20 BMI 25.2 06/03/20 BP 139/89 H 06/03/20 Blood Pressure Location Rt brachial 06/03/20 Position Sitting 06/03/20 Respiration 16 06/03/20 Pulse 72 06/03/20 Pulse Source Monitor 06/03/20 Temp 97.5 F L 06/03/20 Temp Source Temporal 06/03/20 Pulse Oximetry (%) 100 06/03/20 Oxygen Delivery Method room air Intake Visit Reasons: C-Scope Chief Complaint: CP Allergies No Known Allergies Allergy (Verified 06/03/20 09:24) [facility] Medical History Hyperlipidemia, unspecified (Chronic) Essential (primary) hypertension (Chronic) Atherosclerotic heart disease of [place] coronary artery without angina pectoris (Chronic) STEMI (ST elevation myocardial infarction) (Acute 02/06/19) HTN (hypertension) (Chronic) Surgical History Stented coronary artery (Chronic 02/06/19) Family History Father , age 83 from CVA and renal failure CVA (cerebral vascular accident) Kidney disease CAD (coronary artery disease) Myocardial infarction S/P CABG (coronary artery bypass graft) History of aortic valve replacement Mother , age 85 of CVA, C Diff S/P CABG (coronary artery bypass graft) CABG X 1 CAD (coronary artery disease) Atrial fibrillation Colon cancer CVA (cerebral vascular accident) Social History (Updated 06/03/20 @ 09:[address] Enzo Marsh MD) Smoking Status: Never smoker second hand exposure: No alcohol intake: never substance use type: does not use caffeine: Yes what type of physical activity do you participate in: none frequency: does not exercise seatbelt use: always HPI HPI HPI: RACHAEL GARCIA is a 60 F who presents to the office today for HPI HPI Surgical H&P: Yes HPI: RACHAEL GARCIA is a 60 F who presents to the office today for Evaluation for colonoscopy. Patient had her last colonoscopy done 5 years ago in [place] she was noted to have biopsies of her ileocecal valve which showed some active colitis reactive hyperplastic mucosal changes. She has not had any problems with her bowels she has not been noticing any blood or abdominal pain. She does have a family history of mother who had colon cancer. Exam Const General: no acute distress, well developed, well hydrated Orientation: oriented to person, oriented to place, oriented to time [facility] Head: normocephalic, atraumatic Ears: external ears normal Mouth: moist mucous membranes Eyes Sclera: sclerae normal Pupils: normal by confrontation Neck Neck: no lymphadenopathy noted Neck mass: No Thyroid: thyroid normal, symmetrical Chest Chest palpation & inspection: normal inspection of the chest Resp Effort & Inspection: normal respiratory effort Auscultation: clear to auscultation bilaterally Percussion: percussion normal Cardio Rate: regular rate Rhythm: regular rhythm GI Palpation: soft, no hepatosplenomegaly, no masses, nontender Rectal Exam: other Other: Rectal exam deferred. Extrem General: normal to inspection, no clubbing, cyanosis or edema Assessment & Plan Problems 1. Family history of colon cancer in mother Z80.0 Plan I have discussed the above with the patient. I have offered the patient colonoscopy for evaluation. I have explained the risks/benefits of the procedure and described the procedure. I have discussed the risks with the patient, including but not limited to: infection, bleeding, perforation of the GI tract requiring emergency surgery, inability to complete the procedure, injury to any internal organs, complications of anesthesia, etc. - the patient understands and agrees to proceed. I have answered all the patient's questions to the patient's satisfaction and the patient has no further questions. The patient has been given instructions for the colon cleansing preparation. She will be off of her Brilinta for 5 days prior to the procedure she will remain on her baby aspirin. Coding Level of Care Code Off vis,new,level 3 Diagnoses Family history of colon cancer in mother Z80.0 COVID (Procedure Consent) Procedure Criteria Procedure Criteria: Yes Elective The surgeon/proceduralist and patient have discussed in detail the risk of exposure to and/or potential harm posed by the COVID-19 virus with having a surgery/procedure at this time versus the risk of? delaying the surgery/procedure. It is not possible to know either the risk of delaying the surgery or procedure or chance of getting an infection with perfect accuracy, but a joint decision was made between the patient and the surgeon/proceduralist ?to proceed at this time with the scheduled surgery/procedure as indicated on the consent form. I have re-examined the patient. There are no clinical changes since date of exam.
[2020-06-22 11:29] VITALS: BP 124/74; BP 134/83; PULSE 65; RESP 16; TEMP 36.6; O2SAT 100
--- NOTE | 2020-06-22 11:32 | OP.COLON_ITS ---
Patient Name: Fátima Esposito Procedure Date: 06/22/2020 11:01 AM Date of : 1960 Age: 60 Procedure: Colonoscopy Indications: Screening in patient at increased risk: Family history of 1st-degree relative with colorectal cancer Providers: Enzo Marsh MD Referring MD: Beau Morales Md Medicines: See the Anesthesia note for documentation of the administered medications Patient Profile: This is a 60 year old female. Refer to note in patient chart for documentation of history and physical. Last Colonoscopy: 5 years ago. Complications: No immediate complications. Procedure: Pre-Anesthesia Assessment: - Prior to the procedure, a History and Physical was performed, and patient medications and allergies were reviewed. The patient's tolerance of previous anesthesia was also reviewed. The risks and benefits of the procedure and the sedation options and risks were discussed with the patient. All questions were answered, and informed consent was obtained. Prior Anticoagulants: The patient has taken no previous anticoagulant or antiplatelet agents. ASA Grade Assessment: II - A patient with mild systemic disease. After reviewing the risks and benefits, the patient was deemed in satisfactory condition to undergo the procedure. After I obtained informed consent, the scope was passed under direct vision. Throughout the procedure, the patient's blood pressure, pulse, and oxygen saturations were monitored continuously. The adult colonoscope was introduced through the anus and advanced to the cecum, identified by appendiceal orifice and ileocecal valve. The colonoscopy was performed without difficulty. The patient tolerated the procedure well. The quality of the bowel preparation was good. Scope In: 11:09:02 AM Scope Withdrawal Time 0 hours 9 minutes 14 seconds Scope Out: 11:25:03 AM Total Procedure Duration Time 0 hours 16 minutes 1 second Findings: A few small-mouthed diverticula were found in the sigmoid colon. No biopsies or other specimens were collected for this exam. The exam was otherwise without abnormality. Impression: - Diverticulosis in the sigmoid colon. No specimens collected. - The examination was otherwise normal. Recommendation: - Discharge patient to home. - Resume previous diet. - Continue present medications. - Await pathology results. - Repeat colonoscopy in 5 years for surveillance. - Return to primary care physician (date not yet determined). Procedure Code(s): --- Professional --- 43334, Colonoscopy, flexible; diagnostic, including collection of specimen(s) by brushing or washing, when performed (separate procedure) Diagnosis Code(s): --- Professional --- Z80.0, Family history of malignant neoplasm of digestive organs K57.30, Diverticulosis of large intestine without perforation or abscess without bleeding CPT copyright 2017 [employer]. All rights reserved. The codes documented in this report are preliminary and upon cpc coder review may be revised to meet current compliance requirements. MD Enzo Dixon MD 06/22/2020 11:31:43 AM This report has been signed electronically. Number of Addenda: 0 Note Initiated On: 06/22/2020 11:01 AM
--- NOTE | 2020-06-22 11:32 | OP.CCLET_ITS ---
06/22/2020 Beau Morales Md Re : Colonoscopy procedure for Fátima Esposito Dear Andrew This procedure was performed on Monday, June 22, 2020. My impressions and recommendations are as follows: Impressions : - Diverticulosis in the sigmoid colon. No specimens collected. - The examination was otherwise normal. Recommendations : - Discharge patient to home. - Resume previous diet. - Continue present medications. - Await pathology results. - Repeat colonoscopy in 5 years for surveillance. - Return to primary care physician (date not yet determined). My findings are described in the full procedure note, which is enclosed. If I can be of further assistance, please feel free to contact me at Doctor phone number(s): , Fax: [phone], Work: . Sincerely, MD Enzo Dixon MD 06/22/2020 11:31:43 AM This report has been signed electronically.
[2020-06-22 11:35] VITALS: BP 126/74; BP 134/83; PULSE 67; RESP 16; O2SAT 100
[2020-06-22 11:40] VITALS: BP 125/75; BP 134/83; PULSE 65; RESP 16; O2SAT 96
[2020-06-22 11:47] VITALS: BP 115/77; BP 134/83; PULSE 66; RESP 16; TEMP 36.7; O2SAT 100
[2020-06-22 12:13] VITALS: BP 134/83
== END 2020-06-22 12:18 | disposition home or self-care (01) ==
LOC: EN 09:53 → AC 10:00
PROVIDERS: PCP Family Medicine; Referring Provider Family Medicine; Visit Provider Surgery
PROC: 0DJD8ZZ Inspection of Lower Intestinal Tract, Via Natural or Artificial Opening Endoscopic (ICD-10-PCS; CPT 45378; principal; 2020-06-22 10:55)
DX: Z12.11 Encounter for screening for malignant neoplasm of colon (principal); K57.30 Diverticulosis of large intestine without perforation or abscess without bleeding; Z20.828 Contact with and (suspected) exposure to other viral communicable diseases; I25.10 Atherosclerotic heart disease of native coronary artery without angina pectoris; I10 Essential (primary) hypertension; E78.00 Pure hypercholesterolemia, unspecified; Z78.0 Asymptomatic menopausal state; I25.2 Old myocardial infarction; Z95.5 Presence of coronary angioplasty implant and graft; Z80.0 Family history of malignant neoplasm of digestive organs
CPT/HCPCS: 45378; 87426; C9803; J7120; J1610

== ENCOUNTER → 2021-01-13 13:44 | Outpatient (CLI) | payer BC, SELFPAY ==
[2019-02-06 10:02] VITALS: BMI 28.0
[2020-08-13 15:36] VITALS: BMI 25.4
--- NOTE | 2021-01-13 13:47 | BI_ITS ---
MAMMOGRAPHY - BILATERAL SCREENING REASON FOR EXAM: Female, 60 years old. Routine annual screening examination. PERTINENT HISTORY: Non-contributory. TECHNIQUE: Digital bilateral breast vipin (3D mammographic acquisition) in the CC and MLO projections. 2-D mediolateral oblique (MLO) and craniocaudad (CC) views of both breasts were obtained. CAD: Full Field Digital Mammography with Computer Added Detection was performed. COMPARISON: Comparison is made with prior outside examination dated 12/17/2019. FINDINGS: Breast Composition: The breasts are heterogeneously dense, which may obscure small masses. There are no dominant masses or suspicious calcifications. Stable small benign-appearing bilateral axillary lymph nodes. Stable bilateral calcifications. No focal cluster is seen. No other significant abnormalities are identified. There has been no significant change since the prior study. BI/SCRN MAMM (CAD)W/VIPIN BILAT IMPRESSION: Stable bilateral screening mammogram. Yearly follow-up mammogram recommended. (A) ASSESSMENT CATEGORY: BIRADS Category 2: Benign. A letter regarding these results will be sent to the patient by the facility within 30 days. Approximately 10% of breast cancers are not detected by mammography. A normal mammogram should not delay biopsy of a clinically suspicious abnormality. [id number] Electronically Signed: Terrell Foster MD at 14:48 EDT , Service support ,
== END ==
PROVIDERS: PCP Family Medicine; Referring Provider Family Medicine; Visit Provider Family Medicine
DX: Z12.31 Encounter for screening mammogram for malignant neoplasm of breast (principal)
CPT/HCPCS: 77063; 77067